=== PATIENT | female | born 1995 | race Caucasian/White ===

== ENCOUNTER → 2018-03-13 19:18 | Outpatient (REF) | payer MEDICAID, SELFPAY | LOC: LBN 19:18 | PROVIDERS: PCP Nurse Practitioner Family; Visit Provider Nurse Practitioner Family | DX: N76.0 Acute vaginitis (principal) | CPT/HCPCS: 87480; 87510; 87660 ==

== ENCOUNTER 2018-04-24 09:53 | Outpatient (CLI) | payer MEDICAID, SELFPAY ==
--- NOTE | 2018-04-24 10:00 | DI.US_ITS ---
SYMPTOM/DIAGNOSIS: CALCULUS OF KIDNEY, N20.0 RENAL ULTRASOUND: Routine examination. The left kidney measures 11.8 cm. long. The right kidney measures 11.5 cm. long. No renal masses, calculi or obstruction is seen. There is normal and symmetric blood flow to the kidneys. The prevoid urinary bladder volume is 80 cc's. The bladder wall appeared smooth. No intraluminal masses were present. Both ureteral jets were visualized. The post void urinary bladder volume was 13 cc's. IMPRESSION: Normal renal ultrasound.
== END 2018-04-24 10:13 ==
PROVIDERS: PCP Nurse Practitioner Family; Visit Provider Urology
DX: N20.0 Calculus of kidney (principal)
CPT/HCPCS: 76770

== ENCOUNTER 2018-05-22 19:53 | Emergency (ER) | payer MEDICAID, SELFPAY ==
[2018-05-22 19:59] VITALS: BP 120/77; PULSE 85; RESP 16; TEMP 36.5; O2SAT 100
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
[2018-05-22] MEDS: Ondansetron O.D.T. 4 MG TABEF PO (20:45)
== END 2018-05-22 20:49 | disposition home or self-care (01) ==
LOC: ER 20:49
PROVIDERS: Emergency Provider Emergency Medicine; PCP Nurse Practitioner Family
DX: S06.0X0A Concussion without loss of consciousness, initial encounter (principal); W50.0XXA Accidental hit or strike by another person, initial encounter
CPT/HCPCS: 99283

== ENCOUNTER 2018-05-27 01:14 | Outpatient (CLI) | payer MEDICAID, SELFPAY ==
--- NOTE | 2018-05-27 13:10 | DI.CT_ITS ---
SYMPTOMS/DIAGNOSIS: RECENT CLOSED HEAD INJURY, H/O TBI, DIPLOPIA, H53.2, S09.90XA CRANIAL CT: A noncontrast enhanced examination was performed according to the usual protocol. There is no evidence of an intra or extra-axial hemorrhage, mass or fluid collection. There is nothing to suggest a territorial infarct. The bell/ white matter differentiation is maintained. The ventricles are unremarkable. There is no evidence of a skull fracture. Note is made of hyperostosis frontalis. The sinuses and mastoid air cells are unremarkable. SUMMARY: No acute intracranial abnormality is demonstrated.
== END 2018-05-27 01:34 ==
PROVIDERS: PCP Nurse Practitioner Family; Visit Provider Nurse Practitioner Family
DX: H53.2 Diplopia (principal); S09.90XD Unspecified injury of head, subsequent encounter; Z87.820 Personal history of traumatic brain injury
CPT/HCPCS: 70450

== ENCOUNTER 2018-08-27 20:05 | Outpatient (REF) | payer MEDICAID, SELFPAY | END 2018-08-27 20:25 | LOC: LBN 20:05 | PROVIDERS: PCP Nurse Practitioner Family; Visit Provider Nurse Practitioner Family | DX: J02.9 Acute pharyngitis, unspecified (principal) | CPT/HCPCS: 87070 ==

== ENCOUNTER 2018-10-29 11:33 | Outpatient (REF) | payer MEDICAID, SELFPAY ==
[2018-10-30 13:47] LABS: Chlamydia Result Negative; GC Result Negative; Specimen Description CERVIX
== END 2018-10-29 11:53 ==
LOC: LBN 11:33
PROVIDERS: PCP Nurse Practitioner Family; Visit Provider Nurse Practitioner Women's Health
DX: Z11.3 Encounter for screening for infections with a predominantly sexual mode of transmission (principal)
CPT/HCPCS: 87491; 87591

== ENCOUNTER 2019-08-10 01:53 | Outpatient (CLI) | payer MEDICAID, SELFPAY ==
[2019-08-10 09:57] LABS: Hemoglobin A1C 5.5 % (3.8-5.6)
[2019-08-10 10:16] LABS: ALT 60 U/L (14-59); AST 28 U/L (15-37); Alkaline Phosphatase 91 U/L (46-116); Anion Gap 9.2 mmol/L (3-11); BUN 13 mg/dL (7-18); Bilirubin, Total 0.8 mg/dL (0.2-1.0); CO2 27.8 mmol/L (21.0-32.0); CREATININE 0.89 mg/dL (0.55-1.02); Calcium 9.4 mg/dL (8.5-10.1); Calculated LDL 118 mg/dL; Chloride 104 mmol/L (98-107); Cholesterol 179 mg/dL (<200); Glucose 105 mg/dL (74-106); HDL Cholesterol 49 mg/dL (40-60); Potassium 4.2 mmol/L (3.5-5.1); Sodium 141 mmol/L (136-145); TSH 1.87 uIU/mL (0.36-3.74); Total Protein 7.7 g/dL (6.4-8.2); Triglyceride 64 mg/dL (<150)
[2019-08-10 10:35] LABS: FREE T4 0.96 ng/dL (0.76-1.46)
== END 2019-08-10 02:13 ==
PROVIDERS: PCP Nurse Practitioner Family; Visit Provider Nurse Practitioner Family
DX: E78.5 Hyperlipidemia, unspecified (principal); E28.2 Polycystic ovarian syndrome
CPT/HCPCS: 36415; 80053; 80061; 83036; 84439; 84443

== ENCOUNTER 2020-03-15 01:00 | Outpatient (CLI) | payer MEDICAID, SELFPAY ==
--- NOTE | 2020-03-15 13:07 | DI.RAD_ITS ---
EXAM: XR FOOT LT COMPLETE CLINICAL HISTORY: stepped on nail; punture left foot, r/o fracture,S91.332A TECHNIQUE: COMPARISON: CR RIGHT FOOT COMPLETE from 05/22/2010 FINDINGS: Three views were obtained. No bony or soft tissue abnormality seen. No visible foreign body. IMPRESSION: RADIATION DOSE DELIVERED: Total DLP
== END 2020-03-15 01:20 ==
PROVIDERS: PCP Nurse Practitioner Family; Visit Provider Physician Assistant
DX: S91.332A Puncture wound without foreign body, left foot, initial encounter (principal)
CPT/HCPCS: 73630

== ENCOUNTER 2020-04-11 19:29 | Emergency (ER) | payer MEDICAID, SELFPAY ==
[2020-04-11] VITALS (11 sets, daily range): BP systolic 100–140; BP diastolic 49–109; PULSE 67–89; RESP 16–18; TEMP 36.5; O2SAT 97–99
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
[2020-04-11] MEDS: diphenhydrAMINE 50 MG/ML VIAL 25 MG IVP (20:27)
[2020-04-11] MEDS: Normal Saline Flush 10 ML SYR IVP (20:27)
[2020-04-11] MEDS: Ketorolac 30 MG/ML VIAL IVP (20:27)
[2020-04-11] MEDS: Prochlorperazine 10 MG/2 ML VIAL IVP (20:27)
[2020-04-11] MEDS: Lactated Ringers 1,000 ML 1000 ML IV (20:28)
[2020-04-11 20:45] LABS: Abs Immature Grans 0.14 10^3/uL (0.0-0.06); Absolute Lymphocyte Count 1.95 10^3/uL (1.2-3.4); Basophils % 0.3; HCT 47.5 % (36.0-46.0); HGB 15.9 g/dL (11.2-15.7); Immature Grans % 0.8; MCH 29.1 pg (27.0-33.0); MCHC 33.5 % (32.0-36.0); MCV 86.8 fL (80-95); MPV 9.8 fL (8.0-11.0); Monocytes % 3.5; Neutrophils % 84.4; Nucleated RBC 0 %; Platelet Count 484 10^3/uL (130-400); RBC 5.47 10^6/uL (3.93-5.22); RDW 12.5 % (11.7-14.6); RDW-SD 39.7 fL; WBC 17.76 10^3/uL (4.4-10.8)
[2020-04-11 20:53] LABS: Absolute Basophil Count 0.05 10^3/uL (0.0-0.2); Absolute Monocyte Count 0.62 10^3/uL (0.1-0.8); Absolute Neutrophil Count 14.99 10^3/uL (1.2-6.7)
[2020-04-11 21:17] LABS: ALT 66 U/L (14-59); AST 25 U/L (15-37); Albumin 3.7 g/dL (3.4-5.0); Alkaline Phosphatase 89 U/L (46-116); Anion Gap 8.6 mmol/L (3-11); BUN 15 mg/dL (7-18); Bilirubin, Total 0.4 mg/dL (0.2-1.0); CO2 27.4 mmol/L (21.0-32.0); CREATININE 0.88 mg/dL (0.55-1.02); Calcium 9.2 mg/dL (8.5-10.1); Chloride 104 mmol/L (98-107); Glucose 130 mg/dL (74-106); Potassium 3.7 mmol/L (3.5-5.1); Sodium 140 mmol/L (136-145); Total Protein 7.9 g/dL (6.4-8.2)
[2020-04-11 21:37] LABS: TSH (W/Ref FT4) 0.84 uIU/mL (0.36-3.74)
[2020-04-13 17:28] LABS: Lyme Ab w Rflx to Lyme Confirm Negative (Negative)
[2020-04-15 13:43] LABS: Anaplasma phagocytophilum Negative (Negative); B. miyamotoi PCR Negative (Negative); Babesia divergens/MO-1 Negative (Negative); Babesia duncani Negative (Negative); Babesia microti Negative (Negative); Ehrlichia chaffeensis Negative (Negative); Ehrlichia ewingii/canis Negative (Negative); Ehrlichia muris eauclairensis Negative (Negative)
== END 2020-04-11 21:50 | disposition home or self-care (01) ==
PROVIDERS: Emergency Provider Physician Assistant; PCP Nurse Practitioner Family
DX: G43.809 Other migraine, not intractable, without status migrainosus (principal); R11.2 Nausea with vomiting, unspecified
CPT/HCPCS: 36415; 80053; 81025; 87798; 96361; 96374; 96375; 99284; 83735; 84443; 85025; 86618; J0780; J1200; J1885

== ENCOUNTER 2020-06-02 09:44 | Emergency (ER) | payer MEDICAID, SELFPAY ==
[2020-06-02 09:45] VITALS: BP 116/68; PULSE 74; RESP 18; TEMP 37; O2SAT 98
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
[2020-06-02] MEDS: Ondansetron O.D.T. 4 MG TABEF PO (10:04)
== END 2020-06-02 10:14 | disposition home or self-care (01) ==
PROVIDERS: Emergency Provider Registered Nurse Emergency; PCP Nurse Practitioner Family
DX: S06.0X0A Concussion without loss of consciousness, initial encounter (principal); R11.0 Nausea; W50.1XXA Accidental kick by another person, initial encounter; Y99.0 Civilian activity done for income or pay
CPT/HCPCS: 99283

== ENCOUNTER 2020-11-16 21:56 | Outpatient (REF) | payer MEDICAID, SELFPAY ==
[2020-11-16 22:49] LABS: FREE T4 0.93 ng/dL (0.76-1.46); TSH 0.87 uIU/mL (0.36-3.74)
[2020-11-20 15:41] LABS: IgA 304 mg/dL (85-499); Interpretation (See Note); Tissue Transglutaminase IgA <1.2 U/mL (<4.0)
== END 2020-11-16 21:57 | disposition home or self-care (01) ==
LOC: LBN 21:56
PROVIDERS: PCP Nurse Practitioner Family; Visit Provider Nurse Practitioner Family
DX: R19.7 Diarrhea, unspecified (principal); E66.9 Obesity, unspecified
CPT/HCPCS: 82784; 83516; 84439; 84443

== ENCOUNTER 2020-11-20 02:29 | Outpatient (CLI) | payer MEDICAID, SELFPAY ==
[2020-11-20 10:11] LABS: Abs Immature Grans 0.04 10^3/uL (0.0-0.06); Absolute Basophil Count 0.09 10^3/uL (0.0-0.2); Absolute Lymphocyte Count 2.69 10^3/uL (1.2-3.4); Absolute Monocyte Count 0.79 10^3/uL (0.1-0.8); Basophils % 0.8; Eosinophils % 5.8; HCT 45.7 % (36.0-46.0); HGB 15.3 g/dL (11.2-15.7); Immature Grans % 0.4; Lymphocytes % 24.6; MCH 29.5 pg (27.0-33.0); MCHC 33.5 % (32.0-36.0); MCV 88.1 fL (80-95); MPV 9.3 fL (8.0-11.0); Monocytes % 7.2; Neutrophils % 61.2; Nucleated RBC 0 %; Platelet Count 405 10^3/uL (130-400); RBC 5.19 10^6/uL (3.93-5.22); RDW 12.5 % (11.7-14.6); RDW-SD 41.1 fL; WBC 10.95 10^3/uL (4.4-10.8)
[2020-11-20 10:12] LABS: Absolute Eosinophil Count 0.64 10^3/uL (0.0-0.7)
[2020-11-20 10:48] LABS: Hemoglobin A1C 5.3 % (<5.7)
== END 2020-11-20 02:30 | disposition home or self-care (01) ==
LOC: LBO 02:29
PROVIDERS: PCP Nurse Practitioner Family; Visit Provider Nurse Practitioner Family
DX: R53.83 Other fatigue (principal); E66.9 Obesity, unspecified; Z13.1 Encounter for screening for diabetes mellitus
CPT/HCPCS: 36415; 83036; 85025

== ENCOUNTER 2020-12-08 19:55 | Emergency (ER) | payer MEDICAID, SELFPAY ==
[2020-12-08 20:12] VITALS: BP 130/88; PULSE 120; RESP 18; TEMP 36.8; O2SAT 99
--- NOTE | 2020-12-08 20:34 | W.ED.GENAD ---
Discharge Plan Disposition Patient Disposition: HOME Condition: Stable Discharge Details Clinical Impression: Mesenteric adenitis, Abdominal pain Primary Care Provider: Suri Diaz ED Provider: Wen Shipman Home Meds and New Rx's Prescriptions: No Action omeprazole 20 mg capsule,delayed release(DR/EC) 20 mg PO DAILY Qty: 90 RF: 0 bupropion HCl 150 mg tablet sustained-release 12 hr 150 mg PO BID RF: 0 Botox 100 unit recon soln 200 unit IM .Q 3 months RF: 0 Mirena 20 mcg/24 hours (5 yrs) 52 mg intrauterine device 1 device IY ONCE RF: 0 triamcinolone acetonide 0.5 % cream 1 applic topical DAILY PRN (Reason: dermatitis) Qty: 15 RF: 4 prochlorperazine maleate 10 mg tablet 10 mg PO Q8H PRN (Reason: nausea and vomiting) Qty: 90 RF: 0 dextroamphetamine-amphetamine [Adderall] 10 mg tablet 10 mg PO TID MDD 30mg Qty: 90 RF: 0 Discharge Instructions Instructions: Abdominal Pain (ED) Additional Instructions: Take medications as directed. Obtain stool sample and bring them to the lab at your convenience. The CT done tonight shows some mild reactive lymph nodes and some mesenteric stranding which is the covering covering your intestines. Follow up with primary care provider in 3-5 days. Return to ED sooner if any worsening or concerns. Increase oral fluids. You are placed on care management with to help expedite follow-up with PCP for reevaluation. Please return to the ER for any worsening pain, fever, vomiting, blood in your stool or any concerns Referrals: Suri Diaz NP [Primary Care Provider] - Discharge Data Discharge Date/Time-TO BE ENTERED AT DEPARTURE: 12/09/20 00:07 Medical Decision Making 25-year-old female presents the ER with chief complaint of suprapubic pressure and cramping with pain into her bilateral lower back. This began 3 weeks ago and has gotten worse. She reports nausea no vomiting no diarrhea. She last had a menstrual period in July she does have an IUD in place. She has a past medical history of GERD, migraines headache, ADHD, PCOS, hyperlipidemia, obesity. She denies any vaginal discharge, itching or bleeding. At this time labs show white blood cell count of 13.60, RBCs 5.28 platelet count 409, absolute neutrophil 7.51, sodium 140, potassium 3.8 BUN 12 creatinine 0.8 urinalysis is negative for nitrites no leukocyte negative for ketones no indication for culture at this time. Differential diagnosis includes urinalysis which is not evident, UTI, pyelonephritis, musculoskeletal strain, kidney stone, however there is no blood in the urine, STI patient denies any vaginal discharge itching or bleeding. 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 I did discuss this with patient and follow-up instruction. Patient discharged home with strict return instructions. This text was generated using [employer] system, please disregard any oddities of phrase or misspellings. HPI General Mode of arrival: ambulatory. Date/Time Provider Initiated Documentation: 12/08/20 20:31. Limitations to Documentation: no limitations. Information obtained by: patient. HPI Narrative: 25-year-old female presents the ER with chief complaint of suprapubic pressure and cramping with pain into her bilateral lower back. This began 3 weeks ago and has gotten worse. She reports nausea no vomiting no diarrhea. She last had a menstrual period in July she does have an IUD in place. She has a past medical history of GERD, migraines headache, ADHD, PCOS, hyperlipidemia, obesity. She denies any vaginal discharge, itching or bleeding. Related Data Home Medications Medication Instructions Recorded Confirmed levonorgestrel 20 mcg/24 hours (6 1 device IY ONCE 01/31/19 12/08/20 yrs) 52 mg intrauterine device onabotulinumtoxinA 100 unit 200 unit IM .Q 3 months ea 04/18/20 12/08/20 solution for injection triamcinolone acetonide 0.5 % 1 applic TOPICAL DAILY PRN #15 g 05/17/20 12/08/20 topical cream prochlorperazine maleate 10 mg 10 mg PO Q8H PRN #90 tab 06/08/20 12/08/20 tablet dextroamphetamine-amphetamine 10 10 mg PO TID #90 tab MDD 30mg 11/08/20 12/08/20 mg tablet omeprazole 20 mg capsule,delayed 20 mg PO DAILY #90 cap 11/16/20 12/08/20 release bupropion HCl 150 mg tablet,12 hr 150 mg PO BID tab 11/20/20 12/08/20 sustained-release Previous Rx's Medication Instructions Recorded triamcinolone acetonide 0.5 % 1 applic TOPICAL DAILY PRN #15 g 05/17/20 topical cream prochlorperazine maleate 10 mg 10 mg PO Q8H PRN #90 tab 06/08/20 tablet dextroamphetamine-amphetamine 10 10 mg PO TID #90 tab MDD 30mg 11/08/20 mg tablet omeprazole 20 mg capsule,delayed 20 mg PO DAILY #90 cap 11/16/20 release Allergies Allergy/AdvReac Type Severity Reaction Status Date / Time sulfamethoxazole AdvReac Intermediate Nausea Verified 12/08/20 20:28 [From Bactrim] trimethoprim [From Bactrim] AdvReac Intermediate Nausea Verified 12/08/20 20:28 General Stated Complaint: Abd Prob TIARA: 3 Review of Systems Narrative: constitutional: Negative for weight loss, alert and oriented, well groomed, normal body habitus, appears uncomfortable HEENT: Denies trauma, headaches, blurry vision, nasal discharge, sore throat, trouble swallowing. Chest: Denies chest pain, palpitations, irregular rhythm, hypertension. Respiratory: Denies Shortness of breath, cough, hemoptysis. GI: Denies , vomiting, diarrhea, constipation. Positive suprapubic abdominal pain, nausea. : Denies rectal bleeding. Positive dysuria, bilateral lower back pain. Neuro: Denies dizziness, blurry vision, weakness, syncope, headache or facial numbness. Hematologic: Denies easy bruising, intolerance to heat or cold, hair loss. REPLACED BY [facility] Medical History ADHD (attention deficit hyperactivity disorder) Atopic dermatitis Concussion Multiple concussions in childhood Depressive disorder Generalized anxiety disorder GERD (gastroesophageal reflux disease) Hyperlipidemia IUD surveillance Mirena IUD inserted 10/29/18 Migraine headache without aura Followed by [facility] [place] [facility], Botox q12wks Obesity PCOS (polycystic ovarian syndrome) Surgical History H/O valvuloplasty (~1995) Cardiac valvuloplasty History of removal of ureteral stent (12/02/14) Right S/P appendectomy S/P cystoscopy with ureteral stent placement (11/18/14) Right Family History Mother PCOS (polycystic ovarian syndrome) Hyperlipidemia Breast cancer Type 2 diabetes mellitus Brain cancer Father Depression Hyperlipidemia Prostate cancer Brother Chronic headaches Maternal Grandfather No problems noted. Maternal Grandmother , at 63 Heart disease Type 2 diabetes mellitus Liver cancer Breast cancer Paternal Grandfather Type 2 diabetes mellitus Hyperlipidemia Paternal Grandmother No problems noted. Social History Smoking/Tobacco Use Status: Never Smoking risk assessment performed?: Yes Alcohol Intake: current Alcohol Intake frequency: holidays/special occasions only Alcohol type: beer, wine and hard liquor Drug use: Never Substance use type: does not use Caregiver/Support person: No Household members: family and children Housing: house Number of Children: 1 Communication Needs: None Pets and animals: Yes Pets and animals: dog(s) Sexually active: Yes Do you think of yourself as: straight/heterosexual Current gender identity: female What is your relationship status?: refused to answer How often do you talk on the phone with friends or family?: three or more times per week How often do you get together with friends or relatives?: once per week How often do you attend sabianist or faith services?: decline to answer Do you belong to any clubs or organized social groups?: no Panel score (0-1 are the most socially isolated patients): 1 What type of physical activity do you participate in: yoga Duration: < 15 minutes/day Frequency: 3-4 times per week Claudia/Amish: None Special claudia needs: No Seatbelt use: always Helmet use: No Drive intox or ride w/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 Appears stated age. Obese body habitus. Head: Normocephalic, no trauma. Eyes: Pupils PERRLA, Red reflex noted, EOM's intact. Eyelids symmetrical without lesions, discharge, or swelling. ENT: Bilateral TM's WNL, External ear normal to inspection, no mastoid TTP, swelling, or erythema, Nasal turbinates WNL, no nasal discharge. Normal dentition, Posterior pharynx WNL, no exudate. Chest: RRR, Normal S1, S2, distal pulses intact. Resp: Lungs clear to auscultation bilaterally, no wheezes, rales, or rhonchi. Abdomen: Soft, nondistended tender to palpation suprapubically, bilateral CVA tenderness with palpation. Musculoskeletal: Normal gait, 5/5 strength to all four extremities. Skin: No suspicious rashes or lesions. Capillary refill less than 2 sec. Neurologic: Cranial nerves II-XII intact. Alert and oriented x 3. DTR's intact. Hematologic/Lymphatic: No ecchymosis, no lymphadenopathy. Course Vital Signs Vital signs: Vital Signs Temperature 36.8 C 12/08/20 20:12 Pulse 120 H 12/08/20 20:12 Respiratory Rate 18 12/08/20 20:12 Blood Pressure 130/88 12/08/20 20:12 Pulse Oximetry 99 12/08/20 20:12 Temperature 36.8 C 12/08/20 20:12 Temperature Source Temporal Artery Scan 12/08/20 20:12 Pulse 120 H 12/08/20 20:12 Respiratory Rate 18 12/08/20 20:12 Respiratory Effort 12/08/20 20:22 Blood Pressure 130/88 12/08/20 20:12 Blood Pressure Position Sitting 12/08/20 20:12 Pulse Oximetry 99 12/08/20 20:12 Oxygen Delivery Method Room Air 12/08/20 20:12 Oxygen Flow Rate 0 12/08/20 20:12 Pain Level 8 12/08/20 20:22
[2020-12-08 20:56] LABS: Bilirubin Negative (Negative); Blood Negative (Negative); Clarity Clear (Clear); Glucose Negative (Negative); Ketones Negative (Negative); Leukocyte Esterase Negative (Negative); Nitrite Negative (Negative); Specific Gravity >= 1.030 (1.005-1.025); Urobilinogen 0.2 EU/dL (Up TO 0.2); pH 6.5 (5-8)
[2020-12-08] MEDS: Normal Saline 1,000 ML 1000 ML IV (21:43)
[2020-12-08] MEDS: Ondansetron 4 MG/2 ML VIAL IVP (21:43)
[2020-12-08] MEDS: Ketorolac 15 MG/ML VIAL IVP (21:55)
[2020-12-08 21:57] LABS: Abs Immature Grans 0.05 10^3/uL (0.0-0.06); Absolute Basophil Count 0.11 10^3/uL (0.0-0.2); Absolute Eosinophil Count 0.57 10^3/uL (0.0-0.7); Absolute Lymphocyte Count 4.05 10^3/uL (1.2-3.4); Absolute Monocyte Count 1.31 10^3/uL (0.1-0.8); Absolute Neutrophil Count 7.51 10^3/uL (1.2-6.7); Basophils % 0.8; Eosinophils % 4.2; HCT 45.8 % (36.0-46.0); HGB 15.5 g/dL (11.2-15.7); Immature Grans % 0.4; Lymphocytes % 29.8; MCH 29.4 pg (27.0-33.0); MCHC 33.8 % (32.0-36.0); MCV 86.7 fL (80-95); MPV 9.6 fL (8.0-11.0); Monocytes % 9.6; Neutrophils % 55.2; Nucleated RBC 0 %; Platelet Count 409 10^3/uL (130-400); RBC 5.28 10^6/uL (3.93-5.22); RDW 12.5 % (11.7-14.6); RDW-SD 39.4 fL
[2020-12-08 22:05] LABS: Anion Gap 8.6 mmol/L (3-11); BUN 12 mg/dL (7-18); CO2 26.4 mmol/L (21.0-32.0); CREATININE 0.8 mg/dL (0.55-1.02); Calcium 9.2 mg/dL (8.5-10.1); Chloride 105 mmol/L (98-107); Glucose 93 mg/dL (74-106); Potassium 3.8 mmol/L (3.5-5.1); Sodium 140 mmol/L (136-145)
--- NOTE | 2020-12-08 22:23 | DI.CT_ITS ---
Exam(s) CT RENAL COLIC WO EXAM: CT RENAL COLIC WO INDICATION: R/O kidney stone vs pyelonephritis. COMPARISON: CT ABD PELVIS WITH CONTRAST from 07/04/2015 TECHNIQUE: FINDINGS: CT examination of the abdomen and pelvis was performed without contrast administration. Images obtained through the lung bases are unremarkable. There may be mild hepatic steatosis. No focal hepatic lesion. Gallbladder and bile ducts are CT normal. Pancreas appears normal. Spleen is unremarkable in appearance. Adrenals appear normal. The kidneys are unremarkable with no evidence of hydronephrosis, nephrolithiasis, or renal mass.. Ur inary bladder unremarkable. Abdominal aorta is of normal diameter and no major vascular abnormality is seen. No abdominal wall hernia. No abdominal or pelvic adenopathy. Question slight prominence of mesenteri c lymph nodes, nonspecific. THERAPEUTIC CASE MANAGER structures appear intact with an IUD in place in the uterine midline. Appendix appears to have been surgically removed. No evidence of diverticulitis or bowel obstruction . IMPRESSION: Negative CT examination of the abdomen and pelvis. RADIATION DOSE DELIVERED: 1,322.83mGy.cm Total DLP 1,322.83mGy.cm Total DLP RADIATION OPTIMIZATION: All CT scans at this facility use at least one of these dose optimization te chniques: automated exposure control; mA and/or kV adjustment per patient size (includes targeted exa ms where dose is matched to clinical indication); or iterative reconstruction.
--- NOTE | 2020-12-08 23:17 | DI.VRAD_ITS ---
PROCEDURE INFORMATION: Exam: CT Abdomen And Pelvis Without Contrast Exam date and time: 12/08/2020 8:56 PM Age: 25 years old Clinical indication: Abdominal pain; Flank; Right; Patient HX: R/O kidney stones vs pyelonephritis TECHNIQUE: Imaging protocol: Computed tomography of the abdomen and pelvis without contrast. Radiation optimization: All CT scans at this facility use at least one of these dose optimization techniques: automated exposure control; mA and/or kV adjustment per patient size (includes targeted exams where dose is matched to clinical indication); or iterative reconstruction. COMPARISON: CT ABD PELVIS WITH CONTRAST 07/04/2015 5:18 PM FINDINGS: Lungs: unremarkable lung bases. Heart: Visualized heart is normal size. Liver: Hepatic steatosis. Hepatomegaly. Otherwise unremarkable liver. Gallbladder and bile ducts: unremarkable gallbladder. no significant biliary ductal dilation. Pancreas: Unremarkable pancreas. Spleen: Unremarkable spleen. Adrenal glands: Unremarkable bilateral adrenal glands. Kidneys and ureters: Unremarkable bilateral kidneys. no hydronephrosis. Unremarkable bilateral ureters. Stomach and bowel: Nonobstructive appearance of the bowel. Appendix: Changes related to prior appendectomy. Intraperitoneal space: No free air. No significant free fluid. Vasculature: normal caliber aorta. Lymph nodes: There is mild central mesenteric stranding with multiple prominent associated and suspected reactive nodes. Other scattered prominent nodes also present and may also be reactive in nature. Urinary bladder: Bladder poorly distended and poorly evaluated. Grossly unremarkable. Reproductive: IUD in place and appears appropriately positioned. Uterus otherwise unremarkable for age. unremarkable adnexa for age. Bones/joints: No acute fracture or dislocation. Soft tissues: Unremarkable superficial soft tissues. IMPRESSION: 1. Findings suggestive of mesenteric panniculitis. 2. Hepatomegaly and hepatic steatosis. Correlate with LFTs. 3. There is no evidence of renal or urinary tract calculi. No evidence of pyelonephritis. Dictated and Authenticated by: Papa Escamilla MD. Ordering:SALO Carver MD
[2020-12-09 00:17] VITALS: BP 130/88; RESP 18; TEMP 36.8; O2SAT 99
== END 2020-12-09 00:07 | disposition home or self-care (01) ==
PROVIDERS: Emergency Provider Registered Nurse Emergency; PCP Nurse Practitioner Family
DX: I88.0 Nonspecific mesenteric lymphadenitis (principal); R10.30 Lower abdominal pain, unspecified
CPT/HCPCS: 80048; 81025; 96361; 96374; 96375; 99284; 74176; 81003; 85025; J1885; J2405

== ENCOUNTER 2020-12-14 18:47 | Outpatient (REF) | payer MEDICAID, SELFPAY ==
--- NOTE | 2020-12-14 16:00 | PAPFT_PTH ---
PATIENT: Norma Julian LOC: [facility] U#:[id number] AGE/SX: 25/F ROOM: RE12/14/[address]: LENCHO Velásquez : 1995 BED: DIS: 12/14/2020 SPEC #: [id number] RECD: 12/15/20 12:59 STATUS: JW KUHN #: [id number] RACHEL: 12/14/20 16:[address]: Suri Diaz DEPT: [facility] Cytology RECD BY: Manda Herrera Tissues: 1 - CX/ENDOCX FOR PAP SMEARS Procedures: PAP THIN PREP/[facility] Screening Comments: [id number] (CHLAMYDIA/GC)
[2020-12-18 15:18] LABS: Chlamydia Result Negative (Negative); GC Result Negative (Negative)
== END 2020-12-14 18:48 | disposition home or self-care (01) ==
LOC: LBN 18:47
PROVIDERS: PCP Nurse Practitioner Family; Visit Provider Nurse Practitioner Family
DX: Z11.3 Encounter for screening for infections with a predominantly sexual mode of transmission (principal); Z12.4 Encounter for screening for malignant neoplasm of cervix
CPT/HCPCS: 87491; 87591; 88142

== ENCOUNTER 2021-02-12 16:04 | Outpatient (CLI) | payer MEDICAID, SELFPAY ==
[2021-02-12 15:06] LABS: Abs Immature Grans 0.03 10^3/uL (0.0-0.06); Absolute Eosinophil Count 0.43 10^3/uL (0.0-0.7); Absolute Lymphocyte Count 2.71 10^3/uL (1.2-3.4); Basophils % 0.9; Eosinophils % 3.7; HCT 44.4 % (36.0-46.0); HGB 15.1 g/dL (11.2-15.7); Immature Grans % 0.3; Lymphocytes % 23.1; MCH 29.4 pg (27.0-33.0); MCV 86.4 fL (80-95); MPV 9.4 fL (8.0-11.0); Monocytes % 6.8; Neutrophils % 65.2; Nucleated RBC 0 %; Platelet Count 422 10^3/uL (130-400); RBC 5.14 10^6/uL (3.93-5.22); RDW 12.1 % (11.7-14.6); RDW-SD 38.5 fL; WBC 11.73 10^3/uL (4.4-10.8)
[2021-02-12 15:12] LABS: Absolute Basophil Count 0.11 10^3/uL (0.0-0.2); Absolute Neutrophil Count 7.65 10^3/uL (1.2-6.7)
[2021-02-12 15:25] LABS: HCG Quant, Pregnancy < 1 mIU/mL (1-3)
== END 2021-02-12 16:05 | disposition home or self-care (01) ==
LOC: LBO 16:04
PROVIDERS: PCP Nurse Practitioner Family; Visit Provider Nurse Practitioner Family
DX: N93.9 Abnormal uterine and vaginal bleeding, unspecified (principal); D75.1 Secondary polycythemia
CPT/HCPCS: 36415; 84702; 85025

== ENCOUNTER 2021-03-28 02:42 | Outpatient (CLI) | payer MEDICAID, SELFPAY ==
--- NOTE | 2021-03-28 08:00 | DI.US_ITS ---
Exam(s) US ABDOMEN EXAM: US ABDOMEN CLINICAL HISTORY: intermittent LUQ PAIN, NAUSEA, VOMITING,R10.12,R11.2 TECHNIQUE: Ultrasound abdomen performed using standard protocol. COMPARISON: CT CT RENAL COLIC WO from 12/08/[address] RENAL COLIC WO from 12/08/2020 FINDINGS: LIVER: Mildly enlarged at 16 cm. Diffusely increased liver echogenicity consistent with fatty infilt ration. No focal liver lesions are seen.. GALLBLADDER: No evidence of cholelithiasis. No evidence of wall thickening. No pericholecystic fluid identified. CRENSHAW'S SIGN: Negative. BILIARY SYSTEM: No intrahepatic or extrahepatic biliary ductal dilation. KIDNEYS: Kidneys are symmetric in size. No evidence of renal calculi. No evidence of hydronephrosis. No renal mass or cyst identified. PANCREAS: Normal where visualized. SPLEEN: Not enlarged. ABDOMINAL AORTA AND IVC: Visualized portions normal caliber. ASCITES: None seen. IMPRESSION: Hepatic steatosis, otherwise negative. DATA REPOSITORY:
== END 2021-03-28 03:02 ==
PROVIDERS: PCP Nurse Practitioner Family; Visit Provider Obstetrics & Gynecology Gynecology
DX: R10.12 Left upper quadrant pain (principal); R11.2 Nausea with vomiting, unspecified; K76.0 Fatty (change of) liver, not elsewhere classified
CPT/HCPCS: 76700

== ENCOUNTER 2021-03-28 21:05 | Outpatient (CLI) | payer MEDICAID, SELFPAY ==
[2021-03-28 13:42] LABS: ESR 7 mm/hr (0-20)
[2021-03-28 15:11] LABS: Iron 69 ug/dL (50-170); Total Iron Binding Capacity 359 ug/dL (250-450)
[2021-03-28 15:24] LABS: Ferritin 122 ng/mL (8-252)
[2021-03-28 15:32] LABS: C-Reactive Protein 0.29 mg/dL (0.0-0.3)
== END 2021-03-28 21:06 | disposition home or self-care (01) ==
LOC: LBO 21:07
PROVIDERS: PCP Nurse Practitioner Family; Visit Provider Nurse Practitioner Family
DX: D47.3 Essential (hemorrhagic) thrombocythemia (principal)
CPT/HCPCS: 36415; 85652; 82728; 83540; 83550; 86140

== ENCOUNTER 2021-07-22 17:42 | Emergency (ER) | payer MEDICAID, SELFPAY ==
[2021-07-22] VITALS (18 sets, daily range): BP systolic 102–139; BP diastolic 62–98; PULSE 82–116; RESP 14–39; TEMP 36.4–36.7; O2SAT 98–100
--- NOTE | 2021-07-22 17:45 | RT.EKG_ITS ---
APPROVED REPORT Exam: Resting ECG Reason for Exam: chest pain Patient Location: E HR:98 bpm ECG Measurements Heart Rate 98 AXIS [place] 139 P 33 QRSd 88 QRS 39 QT 335 T 17 QTc 428 Conclusion Sinus rhythm...normal P axis, V-rate 60- 99. Sinus. No STEMI. I have reviewed and interpreted ECG and agree with software generated interpretation.
--- OUTSIDE RECORDS SUMMARY | 2021-07-22 17:49 | XMS_ITS ---
:1995 Author Organization Department [facility] Address [address] [place] [id number] Selected Encounter This section includes the information on record at [place] for the Encounter. Date/Time Encounter Type Encounter Description Reason Provider Source Apr 26, 2021 08:04 Outpatient Encounter ADMIN PAT ACTIVTIES AM (MASNONCT) IHE Encounter Template Text not used by [facility] Encounter Notes: All associated encounter notes This section contains the clinical notes associated to the Encounter. Date/Time Encounter Note(s) Provider Source Apr 26, 2021 08:04 AM CAREGIVER CERTIFICATE: AIDAN BISHOP [facility] LOCAL TITLE: CSP DENIAL NOTE [facility] STANDARD TITLE: CAREGIVER CERTIFICATE DATE OF NOTE: APR 26, 2021@08:04 ENTRY DATE: APR 26, 2021@08:04:33 AUTHOR: AIDAN BISHOP EXP COSIGNER: URGENCY: STATUS: COMPLETED Caregiver Support Program Denial Note Denial date: 04/23/2021 Denied from the Program of Comprehensive Assista nce for Family Caregivers. The person being denied is the . The reason for denial is the or sales service manager does not require personal care services for a minimum of 6 contin uous months based on an inability to perform an ADL and/or a need for ghosh pervision, protection or instruction. Date of verbal notification of determination: 04/26/2021 Date determination letter was mailed: 04/26/2021 The following information was reviewed and/or pr ovided: Appeals /maxine/ MICHELLE BISHOP BRICK LOADER Signed: 04/26/2021 08:05
--- OUTSIDE RECORDS SUMMARY | 2021-07-22 17:49 | XMS_ITS | Encounter Summary ---
:1995 Author Organization [facility] Address [address] [place] [address] Selected Encounter This section includes the information on record at [place] for the Encounter. Date/Time Encounter Type Encounter Description Reason Provider Source Apr 27, 2021 06:39 Outpatient Encounter ADMIN PAT ACTIVTIES AM (MASNONCT) IHE Encounter Template Text not used by [facility] Encounter Notes: All associated encounter notes This section contains the clinical notes associated to the Encounter. Date/Time Encounter Note(s) Provider Source Apr 27, 2021 06:39 CAREGIVER CERTIFICATE: BRITNEY JOHNSON LOCAL TITLE: CSP ADMINISTRATIVE NOTE [facility] STANDARD TITLE: CAREGIVER CERTIFICATE DATE OF NOTE: APR 27, 2021@06:39 ENTRY DATE: APR 27, 2021@06:39:12 AUTHOR: BRITNEY JOHNSON EXP COSIGNER: URGENCY: STATUS: COMPLETED PCA Decision Letter, [facility] Clinical [facility] FAQ, [facility] Form [id number], and [facility] Notice of Privacy Practices was mailed jean-pierre Eid by [facility] Certified Mail. A copy of the letter is attached to this note. [facility] Certified Mail Tracking # [id number] /maxine/ BRITNEY JOHNSON DIGITAL ASSET MANAGER Signed: 04/27/2021 06:39 Receipt Acknowledged By: * AWAITING SIGNATURE * AIDAN BISHOP
--- OUTSIDE RECORDS SUMMARY | 2021-07-22 17:49 | XMS_ITS ---
:1995 Author Organization Department [facility] Address [address] [place] [id number] Selected Encounter This section includes the information on record at [facility] for the Encounter. Date/Time Encounter Type Encounter Description Reason Provider Source Apr 03, 2021 09:20 Outpatient Encounter ADMIN PAT ACTIVTIES AM (MASNONCT) IHE Encounter Template Text not used by VA Encounter Notes: All associated encounter notes This section contains the clinical notes associated to the Encounter. Date/Time Encounter Note(s) Provider Source Apr 03, 2021 09:20 AM CAREGIVER CERTIFICATE: BRITNEY JOHNSON ANUJ JIANG [facility] LOCAL TITLE: CSP ADMINISTRATIVE NOTE [facility] STANDARD TITLE: CAREGIVER CERTIFICATE DATE OF NOTE: APR 03, 2021@09:20 ENTRY DATE: APR 03, 2021@09:20:22 AUTHOR: BRITNEY JOHNSON EXP COSIGNER: URGENCY: STATUS: COMPLETED [facility] Welcome letter and a copy of the V A Notice of Privacy Practices was sent to Norma Eid at the mailing address on file. A copy of the [facility] Welcome letter is attached to this note. /maxine/ BRITNEY JOHNSON PLASTER MACHINE OPERATOR Signed: 04/03/2021 09:20 Receipt Acknowledged By: 04/03/2021 09:29 /maxine/ MICHELLE BISHOP [facility]
--- OUTSIDE RECORDS SUMMARY | 2021-07-22 17:49 | XMS_ITS | Encounter Summary ---
:1995 Author Organization [facility] Address [address] [place] [id number] Selected Encounter This section includes the information on record at [facility] for the Encounter. Date/Time Encounter Type Encounter Reason Provider Source Description Apr 06, 2021 HC PRO PHONE TELEPHONE/ANCILL ICD-10-CM Z02.9 DICKSON BISHOP 01:49 PM CALL 5-10 MIN RODRIGO Encounter for JOE P administrative examinations, unspecified with Provider Comments: Encounter for Administrative Examinations, unspecified IHE Encounter Template Text not used by [facility] Assessments - Encounter Diagnoses This section includes the primary and secondary diagnoses documented forthe Encounter. Date/Time Primary/Secondary Diagnosis Name Provider Source Diagnosis Apr 06, 2021 PRIMARY Encounter for OFELIADomenicJoyaJANIE JIANG 01:49 PM administrative P JCT [facility] examinations, unspecified Surgical Procedures: All associated to the encounter This section includes all Surgical Procedures and Surgical Procedure Notes associated to the Encounter.Surgical Procedures This section includes all Surgical Procedures associated to the Encounter.Surgical Procedure Date/Time Procedure Procedure Type Procedure Provider Source Qualifiers Apr 06, 2021 HC PRO PHONE HC PRO PHONE DICKSON BISHOP 01:49 PM CALL 5-10 MIN CALL 5-10 MIN JOE P JCT [facility] Surgical Notes There are no notes associated with this procedure. Encounter Notes: All associated encounter notes This section contains the clinical notes associated to the Encounter. Date/Time Encounter Note(s) Provider Source Apr 06, 2021 01:49 PM CAREGIVER CERTIFICATE: AIDAN BISHOP [facility] LOCAL TITLE: CSP [facility] CAREGIVER ASSESSMENT [facility] STANDARD TITLE: CAREGIVER CERTIFICATE DATE OF NOTE: APR 06, 2021@13:49 ENTRY DATE: APR 06, 2021@13:49:53 AUTHOR: AIDAN BISHOP EXP COSIGNER: URGENCY: STATUS: COMPLETED DEMOGRAPHIC INFORMATION Caregiver's Name: SENTHIL EID Caregiver's Date of : Aug TYPE OF CAREGIVER: PRIMAR Y Method of assessment: Telephone 's Name: REBEKAH EID does not live with the Caregiver. 's Address: [address] [place] [id number] [address] to support the Vete ran at home? CG lives next to the Trade's home does not have a legal guardian. Trade does not have a fiduciary. Caregiver's Relationship to the : Caregiver is Trade's daughter. Caregiver's Insurance Status: Medicaid Comment: [facility] Caregiver is not a Trade. Caregiver denies current Service. Comment: n/a CAREGIVER RESPONSIBILITIES Employment - details: n/a School: Full-time Comment: full-time student Caregiver for Others: Takes care of the Trade's daughter who lives with CG. Volunteer Work: No CAREGIVER HISTORY Caregiver reports past paid caregiving experienc e. 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 Caregiver reports past unpaid caregiving experie nce. Details: Took care of mother before she passed . Caregiver reports receiving/attending caregiver training/education. Details: Respite care educational course. Length of time Caregiver reports caring for the : Less than 1 year Comment: Has been taking care of joe nevarez September 2020 How does the Caregiver report spending a typical day? Yara goes to school from [id number], house raghu porras, errands, picks up sister from school, takes Trade to appts as needed. Is home Friday-Friday and assists as needed. In what ways does the caregiver role affect the Caregiver's everyday life? Is constantly worried to make myke ethe Trade needs are being met and that he is feeling emotionally attached to his family. Per self-report, does the Caregiver use any self -care strategies? Yes - details: Receives counseling once a week, does not forbes ve a lot of time to other things. Per self-report, does anyone regularly assist th jaki Caregiver in providing care to the Trade? Yes - the following assists: CG's brother Walt assist with bathing and a s needed otherwise when CG is not available. The Caregiver denies use or receipt of any suppo rtive services or programs. Caregiver reports needing the following addition al knowledge and/or support: None reported CAREGIVER ASSESSMENT Does the Caregiver report any current or past ph ysical or medical conditions? Yes - details: Had a TBI 14 yrs. old. Does the Caregiver report any current or past me ntal health conditions? No Does the Caregiver report any current or past dr ug or alcohol use? No Does the Caregiver report or are there any curre nt or past concerns regarding domestic violence or safety? No Comment: no Does the Caregiver report any current or past le gal issues? No Comment: no If there is an intimate relationship between Loret bradly and Caregiver, does the Caregiver express any intimacy issues or concern s? Not Applicable Comment: CG is 's daughter Caregiver strengths and coping skills: CG describes herself as caring, understanding, very ambitious and loves to help when ever needed. Caregiver challenges and stressors: MITUL is going to school full-time, grieving over the passing of her mother, worries about her father's depression. Interventions/Plan (referrals, resources, educat ion, etc.): Discussed next steps of the [facility] applic ation process, no further questions at this time. Clinical Summary: Daughter of Izabela is applying as the primary c aregiver in the [facility]. The Trade's spouse who was his CG recently. CG's main concern of the Trade is his mobility issues with his left wellington e being numb most the day reported by and his depression. CG continues to discuss mental health treatment with the in hopes that he will find something that will accommodate his needs and help him to feel aida r and assist him through the grieving of spouse. CG describes herself as caring, understanding, v christian ambitious and loves to help when ever needed. Take s care of the Trade's daughter who lives with CG. MITUL is also going to school f ull-time and has her brother assist with her father when she is away. /maxine/ MICHELLE BISHOP RODEO CLOWN Signed: 04/06/2021 17:10
--- NOTE | 2021-07-22 18:00 | DI.RAD_ITS ---
Exam(s) XR PORTABLE CHEST AP EXAM: XR PORTABLE CHEST AP CLINICAL HISTORY: Chest Pain, PUI TECHNIQUE: 2D digital imaging was performed. COMPARISON: CR RIGHT SHOULDER COMPLETE from 10/28/2016 FINDINGS: LUNGS: Clear. No pleural abnormality seen. HEART: Normal. MEDIASTINUM: Normal. BONES: Unremarkable. IMPRESSION: No acute pulmonary findings. DATA REPOSITORY: RADIATION DOSE DELIVERED:
--- NOTE | 2021-07-22 18:29 | ED.GENADUL_ITS ---
Discharge Plan Disposition Patient Disposition: HOME Condition: Stable Discharge Details Clinical Impression: Viral upper respiratory illness Primary Care Provider: Suri Diaz ED Provider: Wen Shipman Home Meds and New Rx's Prescriptions: Continued bupropion HCl 300 mg tablet extended release 24 hr 300 mg PO DAILY Qty: 90 RF: 4 buspirone 7.5 mg tablet 7.5 mg PO BID Qty: 180 RF: 0 hydroxyzine HCl 50 mg tablet 50 mg PO Q6H PRN (Reason: itching) Qty: 90 RF: 0 dextroamphetamine-amphetamine [Adderall] 10 mg tablet 10 mg PO TID MDD 30mg Qty: 90 RF: 0 Botox 100 unit recon soln 200 unit IM .Q 3 months RF: 0 triamcinolone acetonide 0.5 % cream 1 applic topical DAILY PRN (Reason: dermatitis) Qty: 15 RF: 4 prednisone 20 mg tablet See Rx Instructions PO DAILY Qty: 24 RF: 0 levonorgestrel [Plan B One-Step] 1.5 mg tablet 1.5 mg PO ONCE Qty: 1 RF: 0 Discharge Instructions Instructions: Upper Respiratory Infection (ED), Anxiety (ED) Additional Instructions: The work-up completed today is largely within normal limits. No abnormality on the chest x-ray, Covid is negative. Use the albuterol inhaler 1 or 2 puffs every 4-6 hours as needed for shortness of breath and/or wheezing. This may be also a symptom of anxiety and/or grief reaction. Follow up with primary care provider in 3-5 days. Return to ED sooner if any worsening or concerns. Increase oral fluids. Please take Tylenol or Ibuprofen with food every 4-6 hours as needed for pain and swelling. Referrals: Suri Diaz, PIO [Primary Care Provider] - 5 days Medical Decision Making 25-year-old female presents to the ER with chief complaint of chest pain, heaviness and URI type symptoms got worse over the last few weeks. Patient reports that she feels like she has croup. She has no wheezing on auscultation, she has a dry nonproductive cough. She had a negative Covid test 5 days ago. She has a past medical history of depression, anxiety disorder, ADHD, hyperlipidemia, GERD, migraines and obesity. She was recently prescribed anti-anxiety medication including hydroxyzine and Ativan. Cardiac work-up ordered including EKG, serial troponins, D-dimer and basic labs. Portable chest x-ray and Covid test ordered. Patient is tachycardic on initial exam from 104 to 118. Differential diagnosis includes but not limited to bronchitis, anxiety, CAD, PE Imaging protocol: XR of the chest. Views: 1 view. COMPARISON: CT RENAL COLIC WO 12/08/2020 10:20 PM FINDINGS: Lungs: No pulmonary consolidation is seen. Pleural spaces: No pleural effusion or pneumothorax is demonstrated. Heart/Mediastinum: Cardiac monitoring leads overlie the exam. The heart is normal in size. Bones/joints: The visualized bony structures appear grossly intact, as seen. IMPRESSION: No active disease is seen in the chest. Thank you for allowing us to participate in the care of your patient. Dictated and Authenticated by: Perez Madrid MD CBC shows mild leukocytosis with a white blood cell count of 12.30, platelets 491, absolute neutrophil 7.40 CMP largely within normal limits. Covid is pending at this time. D-dimer is pending. D-dimer within normal limits. Covid is negative. Discussed results with patient who verbalizes understanding. Patient given an albuterol inhaler and instructed on use. Patient reports she feels a little bit better after using the inhaler. Discussed home care and follow-up increase fluids. This text was generated using [employer]ation system, please disregard any oddities of phrase or misspellings. HPI General Mode of arrival: ambulatory . Date/Time Provider Initiated Documentation: 07/22/21 17:44 . Limitations to Documentation: no limitations . Information obtained by: patient, RN notes reviewed and old records reviewed . HPI Narrative: 25-year-old female presents to the ER with chief complaint of chest pain, heaviness and URI type symptoms got worse over the last few weeks. Patient reports that she feels like she has croup. She has no wheezing on auscultation, she has a dry nonproductive cough. She had a negative Covid test 5 days ago. She has a past medical history of depression, anxiety disorder, ADHD, hyperlipidemia, GERD, migraines and obesity. She was recently prescribed anti-anxiety medication including hydroxyzine and Ativan. Related Data Home Medications Medication Instructions Recorded Confirmed onabotulinumtoxinA 100 unit 200 unit IM .Q 3 months ea 04/18/20 07/22/21 solution for injection triamcinolone acetonide 0.5 % 1 applic TOPICAL DAILY PRN #15 g 05/28/21 07/22/21 topical cream bupropion HCl 300 mg 24 hr tablet, 300 mg PO DAILY #90 tab 06/18/21 07/22/21 extended release buspirone 7.5 mg tablet 7.5 mg PO BID #180 tab 06/18/21 07/22/21 dextroamphetamine-amphetamine 10 10 mg PO TID #90 tab MDD 30mg 06/18/21 07/22/21 mg tablet hydroxyzine HCl 50 mg tablet 50 mg PO Q6H PRN #90 tab 06/18/21 07/10/21 levonorgestrel 1.5 mg tablet 1.5 mg PO ONCE #1 tab 07/02/21 07/10/21 prednisone 20 mg tablet See Rx Instructions PO DAILY #24 07/10/21 07/10/21 tab Previous Rx's Medication Instructions Recorded triamcinolone acetonide 0.5 % 1 applic TOPICAL DAILY PRN #15 g 05/28/21 topical cream bupropion HCl 300 mg 24 hr tablet, 300 mg PO DAILY #90 tab 06/18/21 extended release buspirone 7.5 mg tablet 7.5 mg PO BID #180 tab 06/18/21 dextroamphetamine-amphetamine 10 10 mg PO TID #90 tab MDD 30mg 06/18/21 mg tablet hydroxyzine HCl 50 mg tablet 50 mg PO Q6H PRN #90 tab 06/18/21 levonorgestrel 1.5 mg tablet 1.5 mg PO ONCE #1 tab 07/02/21 prednisone 20 mg tablet See Rx Instructions PO DAILY #24 07/10/21 tab Allergies Allergy/AdvReac Type Severity Reaction Status Date / Time sulfamethoxazole AdvReac Intermediate Nausea Verified 07/22/21 17:54 [From Bactrim] trimethoprim [From Bactrim] AdvReac Intermediate Nausea Verified 07/22/21 17:54 General Stated Complaint: Chest Pain TIARA: 3 Review of Systems All systems reviewed & are unremarkable except as noted in HPI and below PFSH All Active Problems (Updated 07/22/21 @ 20:54 by Wen Shipman) Viral upper respiratory illness (Acute) Depressive disorder (Chronic) Generalized anxiety disorder (Chronic) ADHD (attention deficit hyperactivity disorder) (Chronic) PCOS (polycystic ovarian syndrome) (Chronic) Hyperlipidemia (Chronic) Pityriasis rosea (Acute) Thrombocytosis (Chronic) GERD (gastroesophageal reflux disease) (Chronic) Migraine headache without aura (Chronic) Followed by [facility], Botox q12wks Obesity (Chronic) Active Problem List Thrombocytosis (Chronic) GERD (gastroesophageal reflux disease) (Chronic) Migraine headache without aura (Chronic) Depressive disorder (Chronic) ADHD (attention deficit hyperactivity disorder) (Chronic) PCOS (polycystic ovarian syndrome) (Chronic) Hyperlipidemia (Chronic) Generalized anxiety disorder (Chronic) Obesity (Chronic) Medical History Concussion Multiple concussions in childhood Surgical History H/O valvuloplasty (~1995) Cardiac valvuloplasty History of removal of ureteral stent (12/02/14) Right S/P appendectomy S/P cystoscopy with ureteral stent placement (11/18/14) Right Family History Mother PCOS (polycystic ovarian syndrome) Hyperlipidemia Breast cancer Type 2 diabetes mellitus Brain cancer Father Depression Hyperlipidemia Prostate cancer Brother Chronic headaches Maternal Grandfather No problems noted. Maternal Grandmother , at 63 Heart disease Type 2 diabetes mellitus Liver cancer Breast cancer Paternal Grandfather Type 2 diabetes mellitus Hyperlipidemia Paternal Grandmother No problems noted. Social History Smoking/Tobacco Use Status: Never Smoking risk assessment performed?: Yes Alcohol Intake: current Alcohol Intake frequency: holidays/special occasions only Alcohol type: beer, wine and hard liquor Drug use: Never Substance use type: does not use Caregiver/Support person: No Household members: family, children and other Details: Rivka Moreira. BF Manuelito. 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 Pets and animals: Yes Pets and animals: dog(s) Sexually active: Yes Do you think of yourself as: straight/heterosexual Current gender identity: female What is your relationship status?: refused to answer How often do you talk on the phone with friends or family?: three or more times per week How often do you get together with friends or relatives?: once per week How often do you attend latter-day or scientologist services?: decline to answer Do you belong to any clubs or organized social groups?: no Panel score (0-1 are the most socially isolated patients): 1 What type of physical activity do you participate in: yoga Duration: < 15 minutes/day Frequency: 3-4 times per week Claudia/Orthodox: None Special claudia needs: No Seatbelt use: always Helmet use: No Drive intox or ride w/intox sprinkler truck driver: No Do you feel safe at home: Yes Do you feel safe in your relationship?: Yes Female Reproductive History Menstrual control method: pills (12/2020 Mirena removed after 3 years and Amber OCPs intiated.) History History 2 Para Hx # Term Pregnancies Multiple births Hx # Pregnancies Ectopic pregnancies AB induced Hx Number of Living Children AB spontaneous 2 Exam Narrative Exam Narrative: Constitutional: Alert and oriented x3. Appears stated age. Normal body habitus. Head: Normocephalic, no trauma. Eyes: Pupils PERRL, Red reflex noted, EOM's intact. Eyelids symmetrical without lesions, discharge, or swelling. ENT: Bilateral TM's WNL, External ear normal to inspection, no mastoid TTP, swelling, or erythema, Nasal turbinates WNL, no nasal discharge. Normal dentition, Posterior pharynx WNL, no exudate. Chest: RRR, Normal S1, S2, distal pulses intact. Resp: Lungs clear to auscultation bilaterally, no wheezes, rales, or rhonchi. Abdomen: Soft, non-distended, Normoactive bowel sounds all 4 quads. Musculoskeletal: Normal gait, 5/5 strength to all four extremities. Skin: No suspicious rashes or lesions. Capillary refill less than 2 sec. Neurologic: Cranial nerves II-XII intact. Alert and oriented x 3. Motor: No deficits noted. Sensory: Intact bilaterally all 4 extremities. Reflexes: DTR's intact bilaterally.. Hematologic/Lymphatic: No ecchymosis, no lymphadenopathy. Course Vital Signs Vital signs: Vital Signs Temperature 36.7 C 07/22/21 17:50 Pulse 115 H 07/22/21 17:50 Respiratory Rate 20 07/22/21 17:50 Blood Pressure 102/62 07/22/21 17:50 Pulse Oximetry 100 07/22/21 17:50 Temperature 36.7 C 07/22/21 17:50 Pulse 115 H 07/22/21 17:50 Respiratory Rate 18 07/22/21 17:56 Respiratory Effort Non-Labored 07/22/21 17:56 Respiratory Depth Normal 07/22/21 17:56 Respiratory Pattern Normal 07/22/21 17:56 Blood Pressure 102/62 07/22/21 17:50 Blood Pressure Position Sitting 07/22/21 17:50 Pulse Oximetry 100 07/22/21 17:50 Oxygen Delivery Method Room Air 07/22/21 17:50 Oxygen Flow Rate 0 07/22/21 17:50
[2021-07-22 18:40] LABS: ALT 49 U/L (14-59); AST 21 U/L (15-37); Albumin 3.8 g/dL (3.4-5.0); Alkaline Phosphatase 99 U/L (46-116); Anion Gap 10.3 mmol/L (3-11); BUN 9 mg/dL (7-18); Bilirubin, Total 0.4 mg/dL (0.2-1.0); CO2 27.7 mmol/L (21.0-32.0); CREATININE 0.9 mg/dL (0.55-1.02); Calcium 9.2 mg/dL (8.5-10.1); Chloride 104 mmol/L (98-107); Glucose 78 mg/dL (74-106); Sodium 142 mmol/L (136-145); Troponin I < 50 ng/L (<or=60)
[2021-07-22 18:44] LABS: Abs Immature Grans 0.03 10^3/uL (0.0-0.06); Absolute Basophil Count 0.11 10^3/uL (0.0-0.2); Absolute Eosinophil Count 0.48 10^3/uL (0.0-0.7); Absolute Lymphocyte Count 3.22 10^3/uL (1.2-3.4); Absolute Monocyte Count 1.06 10^3/uL (0.1-0.8); Basophils % 0.9; Eosinophils % 3.9; HGB 15.3 g/dL (11.2-15.7); Immature Grans % 0.2; Lymphocytes % 26.2; MCH 28.4 pg (27.0-33.0); MCHC 32.6 % (32.0-36.0); MCV 87.2 fL (80-95); MPV 9.5 fL (8.0-11.0); Monocytes % 8.6; Neutrophils % 60.2; Nucleated RBC 0 %; Platelet Count 491 10^3/uL (130-400); RBC 5.39 10^6/uL (3.93-5.22); RDW 12.5 % (11.7-14.6); RDW-SD 39.9 fL
--- NOTE | 2021-07-22 19:00 | DI.VRAD_ITS ---
PROCEDURE INFORMATION: Exam: XR Chest Exam date and time: 07/22/2021 6:01 PM Age: 25 years old Clinical indication: Other: Generalized; Patient HX: Chest pain and cough TECHNIQUE: Imaging protocol: XR of the chest. Views: 1 view. COMPARISON: CT RENAL COLIC WO 12/08/2020 10:20 PM FINDINGS: Lungs: No pulmonary consolidation is seen. Pleural spaces: No pleural effusion or pneumothorax is demonstrated. Heart/Mediastinum: Cardiac monitoring leads overlie the exam. The heart is normal in size. Bones/joints: The visualized bony structures appear grossly intact, as seen. IMPRESSION: No active disease is seen in the chest. Dictated and Authenticated by: Perez Madrid MD. Ordering:SALO Carver MD
[2021-07-22 19:15] LABS: D-Dimer 215 ng/mlFEU (<500)
[2021-07-22 19:46] LABS: Source Nasal/Nares
[2021-07-22] MEDS: Inhaler, Assist Device 1 EACH MC (20:14)
[2021-07-22] MEDS: Albuterol HFA 8 GM 60 PUFF INH IH (20:14)
[2021-07-22 20:30] LABS: COVID-19 PCR Negative (Negative)
== END 2021-07-22 21:23 | disposition home or self-care (01) ==
PROVIDERS: Emergency Provider Registered Nurse Emergency; PCP Nurse Practitioner Family
DX: J06.9 Acute upper respiratory infection, unspecified (principal); R07.9 Chest pain, unspecified; R05.1 Acute cough; R00.0 Tachycardia, unspecified
CPT/HCPCS: 36415; 80053; 81025; 87635; 93005; 99284; 71045; 83735; 84484; 85025; 85379; 93010

== ENCOUNTER → 2022-06-10 01:34 | Outpatient (CLI) | payer MEDICAID, SELFPAY ==
--- NOTE | 2022-06-10 08:00 | DI.US_ITS ---
Exam(s) US PELVIS TRANSVAGINAL EXAM: US PELVIS TRANSVAGINAL CLINICAL HISTORY: irregular menses, hx of PCOS,e28.2,n92.6 TECHNIQUE: Transabdominal and transvaginal imaging was performed using standard protocol. COMPARISON: No exams were available for comparison FINDINGS: The bladder is unremarkable. KIDNEYS: Not imaged. UTERUS: Anteverted. 7.8 x 3.1 x 4.2 cm Endometrium: 10 mm Myometrium: Unremarkable. Cervix: Small nabothian cysts. Small amount of fluid within the cervical canal. OVARIES: Right: Cyst or mass: None. Volume 12.6 mL. Multiple tiny follicles. Left: Cyst or mass: None. Volume 11.8 mL. Multiple tiny follicles. DOPPLER: Color: Volume 12.6 mL no hyperemia. CUL-DE-SAC: Free fluid: None. IMPRESSION: 1. Normal-appearing uterus with endometrial stripe within normal limits. 2. Multiple bilateral tiny ovarian follicles.. DATA REPOSITORY:
== END ==
PROVIDERS: PCP Nurse Practitioner Family; Visit Provider Nurse Practitioner Family
DX: E28.2 Polycystic ovarian syndrome (principal); N92.6 Irregular menstruation, unspecified
CPT/HCPCS: 76830; 76856

== ENCOUNTER 2022-06-23 17:10 | Emergency (ER) | payer MEDICAID, SELFPAY ==
[2022-06-23 17:24] VITALS: BP 143/88; PULSE 127; RESP 20; TEMP 37.2; O2SAT 99
--- NOTE | 2022-06-23 18:15 | W.ED.GENAD ---
Discharge Plan Disposition Patient Disposition: Home Condition: Stable Discharge Details Clinical Impression: Pharyngitis Primary Care Provider: Suri Diaz ED Provider: Shai Escalante Home Meds and New Rx's Prescriptions: Continued ibuprofen 600 mg tablet 600 mg PO ONCE Qty: 1 0RF Rx Instructions: take one hour prior to procedure Botox 100 unit recon soln 200 unit IM .Q 3 months Rx Instructions: pt reports that she has this injection every 3 months at [facility]. -hb triamcinolone acetonide 0.5 % cream 1 applic topical DAILY PRN (Reason: dermatitis) Qty: 15 4RF Rx Instructions: Apply small amount to fingers daily as needed for dermatitis dextroamphetamine-amphetamine [Adderall] 10 mg tablet 10 mg PO BID-TID MDD 30mg Qty: 84 0RF Rx Instructions: Take 1 tablet two to three times a day; administer doses at least 4-6 hours apart Discharge Instructions Instructions: Pharyngitis (ED) Additional Instructions: It is important that you continue to get plenty of rest and stay well-hydrated during illness. At this time is presumed that you have a viral illness and do not need antibiotics but we will contact you if your culture comes back positive for any need of further treatment. Otherwise continue to use [id number] ibuprofen and throat lozenges to help with your symptoms. If you develop any new or significant worsening of symptoms return to the emergency department for reassessment otherwise follow-up with your primary care provider if not improving in the next week. Referrals: Suri Diaz, [facility] [Primary Care Provider] - 1 week (If not improving) Discharge Data Discharge Date/Time-TO BE ENTERED AT DEPARTURE: 06/23/22 18:29 Medical Decision Making Patient presenting to the emergency department for chief complaint of sore throat. She reports this is been going on for the past 4 days and she has history of strep throat as a child. 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 Patient does also state a mild dry cough but states that is more due to throat irritation than 2 anything else. Exam consistent with Pharyngitis with tonsils having slight hypertrophy and erythema but HEENT exam, lung sounds, and cardiac exam are otherwise unremarkable.. no signs of deep neck space infection ( Retropharyngeal abscess, Juan's angina, Parapharyngeal space infection, Peritonsillar Abscess (DERMATOLOGY PROCEDURAL PHYSICIAN)) or Epiglottitis. Pt non toxic and stable. Will give patient single dose of Decadron. Rapid strep was performed at triage and was negative and reflex to strep culture which I feel is appropriate. Did offer patient COVID and influenza testing but she denied these test at this time due to stating that she already tested for COVID at home and was negative. Encourage patient to continue to use uxwp-[id number]-[id number] medications as needed for discomfort and to return for any new or worsening symptoms pending strep culture. After discussion of diagnosis and plan of care patient has no further needs, questions, or concerns and states clear understanding to return to the emergency department for any worsening symptoms. This documentation was generated using [employer] dictation system, please disregard any oddities of phrase or misspellings. Sign Out No HPI General Mode of arrival: ambulatory. Date/Time Provider Initiated Documentation: 06/23/22 18:04. Limitations to Documentation: no limitations. Information obtained by: patient. History of Present Illness 26 year old F presents to the emergency department with the chief complaint of Sore throat, described as moderate, with intensity rated at 7. Quality is described as aching, and is localized to the mouth (Sore throat). Patient reports radiation to (Right ear). Patient started experiencing this day(s) (4) and it has been constant. No relieving factors improve symptom(s), No exacerbating factors reported . Patient notes fever/chills and malaise. Patient did receive the following treatments prior to arrival, NSAID Related Data Home Medications Medication Instructions Recorded Confirmed onabotulinumtoxinA 100 unit 200 unit IM .Q 3 months 04/18/20 06/23/22 solution for injection (Botox) ibuprofen 600 mg tablet 600 mg PO ONCE pain #1 tab 03/07/22 06/23/22 dextroamphetamine-amphetamine 10 10 mg PO BID-TID #84 tabs 04/16/22 06/23/22 mg tablet (Adderall) triamcinolone acetonide 0.5 % 1 applic topical DAILY PRN 04/16/22 06/23/22 topical cream dermatitis #15 grams Previous Rx's Medication Instructions Recorded ibuprofen 600 mg tablet 600 mg PO ONCE pain #1 tab 03/07/22 dextroamphetamine-amphetamine 10 10 mg PO BID-TID #84 tabs 04/16/22 mg tablet (Adderall) triamcinolone acetonide 0.5 % 1 applic topical DAILY PRN 04/16/22 topical cream dermatitis #15 grams Allergies Allergy/AdvReac Type Severity Reaction Status Date / Time sulfamethoxazole AdvReac Intermediate Nausea Verified 06/23/22 17:28 [From Bactrim] trimethoprim [From Bactrim] AdvReac Intermediate Nausea Verified 06/23/22 17:28 General Stated Complaint: Sorethroat TIARA: 4 Review of Systems Constitutional Constitutional: Reports body ache(s), Reports chills, Reports fever(s), Denies headache(s) and Reports malaise Eyes Eyes: Denies eye discharge ENT Ears, Nose, Mouth, and Throat: Reports as per HPI, Denies ear discharge, Reports otalgia, Denies headache(s), Denies nasal congestion, Denies nasal discharge, Denies neck pain, Denies sinus pain, Reports sore throat and Denies throat swelling Cardiovascular Cardiovascular: Denies chest pain and Denies dyspnea Respiratory Respiratory: Reports cough and Denies dyspnea Musculoskeletal Musculoskeletal: Denies joint swelling and Denies neck pain Integumentary/Breasts Skin/Breast: Denies rash Neurologic Neurologic: Denies headache(s) Allergic/Immunologic Allergic/Immunologic: Denies throat swelling PFSH All Active Problems (Updated 06/23/22 @ 18:23 by Shai Escalante NP) Pharyngitis (Acute) Hyperlipidemia (Chronic) PCOS (polycystic ovarian syndrome) (Chronic) Use metformin for period of time. We will skip menses for 2 months Menses, irregular (Chronic) ADHD (attention deficit hyperactivity disorder) (Chronic) Thrombocytosis (Chronic) Migraine headache without aura (Chronic) Followed by [facility] Headache [facility], Botox q12wks Obesity (Chronic) Atopic dermatitis (Chronic) Medical History Concussion Multiple concussions in childhood GERD (gastroesophageal reflux disease) Surgical History H/O valvuloplasty (~1995) Cardiac valvuloplasty History of removal of ureteral stent (12/02/14) Right S/P appendectomy S/P cystoscopy with ureteral stent placement (11/18/14) Right Family History Mother PCOS (polycystic ovarian syndrome) Hyperlipidemia Breast cancer Type 2 diabetes mellitus Brain cancer Father Depression Hyperlipidemia Prostate cancer Brother Chronic headaches Maternal Grandfather No problems noted. Maternal Grandmother , at 63 Heart disease Type 2 diabetes mellitus Liver cancer Breast cancer Paternal Grandfather Type 2 diabetes mellitus Hyperlipidemia Paternal Grandmother No problems noted. Social History Smoking/Tobacco Use Status: Never Smoking risk assessment performed?: Yes Alcohol Intake: current Alcohol Intake frequency: holidays/special occasions only Alcohol type: beer, wine and hard liquor Drug use: Never Substance use type: does not use Caregiver/Support person: No Household members: family, children and other Details: Crow- Harish. BF Manuelito. 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 Pets and animals: Yes Pets and animals: dog(s) Sexually active: Yes Do you think of yourself as: straight/heterosexual Current gender identity: female What is your relationship status?: refused to answer How often do you talk on the phone with friends or family?: three or more times per week How often do you get together with friends or relatives?: once per week How often do you attend oriental orthodox or caodaism services?: decline to answer Do you belong to any clubs or organized social groups?: no Panel score (0-1 are the most socially isolated patients): 1 What type of physical activity do you participate in: yoga Duration: < 15 minutes/day Frequency: 3-4 times per week Claudia/Worship: None Special claudia needs: No Seatbelt use: always Helmet use: No Drive intox 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 Do you feel safe at home: Yes Do you feel safe in your relationship?: Yes Female Reproductive History Menstrual control method: pills History History 2 Para Hx # Term Pregnancies Multiple births Hx # Pregnancies Ectopic pregnancies AB induced Hx Number of Living Children AB spontaneous 2 Exam Const General: cooperative, comfortable and no acute distress Orientation: alert and awake HENMT Head: normal to inspection, normocephalic and atraumatic Ears: hearing grossly normal bilaterally and TM's normal bilaterally General nose exam: external nose normal Face and sinus: no erythema Mouth: oral mucosae normal, no drooling, no muffled voice and no trismus Throat: abnormal tonsil bilaterally erythema and hypertrophy 1+; no exudates, posterior oropharynx abnormal erythema, uvula not displaced and no uvular edema Neck Neck: normal visual inspection, full ROM, no lymphadenopathy, no meningeal signs, trachea midline and supple Resp Effort & Inspection: normal respiratory effort, able to speak in complete sentences and cough Quality of cough: dry Auscultation: clear to auscultation bilaterally Cardio Rate: regular rate Rhythm: regular rhythm Heart Sounds: S1 normal, S2 normal, normal S1 and S2, no click, no gallops, no murmurs and no rubs Skin General skin exam: no rashes or lesions noted and dry skin (warm) Neuro General: patient alert, patient awake, patient oriented x3, gait normal and moves all extremities Cognition: normal cognition Speech: speech normal Course Vital Signs Vital signs: Vital Signs Temperature 37.2 C 06/23/22 17:24 Pulse 127 H 06/23/22 17:24 Respiratory Rate 20 06/23/22 17:24 Blood Pressure 143/88 H 06/23/22 17:24 Pulse Oximetry 99 06/23/22 17:24 Temperature 37.2 C 06/23/22 17:24 Temperature Source Oral 06/23/22 17:24 Pulse 127 H 06/23/22 17:24 Respiratory Rate 20 06/23/22 17:24 Respiratory Effort Non-Labored 06/23/22 17:27 Blood Pressure 143/88 H 06/23/22 17:24 Blood Pressure Position Sitting 06/23/22 17:24 Pulse Oximetry 99 06/23/22 17:24 Oxygen Delivery Method Room Air 06/23/22 17:24 Oxygen Flow Rate 0 06/23/22 17:24 Pain Level 8 06/23/22 17:24 Lab/Test Results Lab/Test Results: 06/23/22 17:30 Pharynx Group A Streptococcus Culture - Pending POC Strep Test-SUSANNA(Rapid) Start: 06/23/22 17:38 Freq: .Rapid Strep Test Status: Active Protocol: Document 06/23/22 17:38 RM (Rec: 06/23/22 17:38 RM [id number]) Strep test-SUSANNA(Rapid)-POC POC-Strep test-SUSANNA (Rapid) Negative POC-Strep test-SUSANNA (Rapid) Negative
[2022-06-23] MEDS: Dexamethasone 10 MG/ML VIAL PO (18:23)
--- NOTE | 2022-06-24 18:12 | NUR.NOTE ---
PAtient called looking questioning why a prescription was not at her pharmacy. No prescription was prescribed.:
--- NOTE | 2022-06-25 12:10 | W.ED.FU ---
Date of service: 06/25/22 Time of Service: 12:11 Follow Up Plan: pt's strep culture grew strep A, called and spoke with pt and she is still having a sore throat so amoxicillin 500mg bid called in for the patient, advised to f/u with pcp and advised to return if worsening or unable to swallow liquids.
--- NOTE | 2022-06-25 12:28 | NUR.NOTE ---
Nursing Note: Per Dr. Tashi Estrada prescription called in to [facility] Amoxicillin 500mg BID 10 days total #20 no refills.
== END 2022-06-23 18:29 | disposition home or self-care (01) ==
PROVIDERS: Emergency Provider Nurse Practitioner Family; PCP Nurse Practitioner Family
DX: J02.0 Streptococcal pharyngitis (principal)
CPT/HCPCS: 87880; 99283; 87081; J1100

== ENCOUNTER 2022-10-04 11:06 | Outpatient (CLI) | payer MEDICAID, SELFPAY ==
[2022-10-04 10:17] LABS: Glucose,1 Hr (Glucola) 153 mg/dL (80-140)
== END 2022-10-04 11:07 | disposition home or self-care (01) ==
LOC: LBO 11:06
PROVIDERS: PCP Nurse Practitioner Family; Visit Provider Obstetrics & Gynecology Maternal & Fetal Medicine
DX: G43.701 Chronic migraine without aura, not intractable, with status migrainosus (principal); O99.211 Obesity complicating pregnancy, first trimester; E66.01 Morbid (severe) obesity due to excess calories; Z87.74 Personal history of (corrected) congenital malformations of heart and circulatory system; R73.09 Other abnormal glucose
CPT/HCPCS: 36415; 82950; 82947

== ENCOUNTER 2022-11-03 09:40 | Emergency (ER) | payer MEDICAID, SELFPAY ==
[2022-11-03 09:46] VITALS: BP 129/111; PULSE 118; RESP 18; TEMP 36.7; O2SAT 99
--- NOTE | 2022-11-03 10:10 | W.ED.GENAD ---
Discharge Plan Disposition Patient Disposition: Home Condition: Stable Discharge Details Clinical Impression: Vaginal bleeding before 22 weeks gestation Primary Care Provider: Suri Diaz ED Provider: Tashi Estrada Home Meds and New Rx's Prescriptions: Continued aspirin [Adult Aspirin Regimen] 81 mg tablet,delayed release (DR/EC) 162 mg PO DAILY acetaminophen [Tylenol] 325 mg capsule 650 mg PO ONCE PRN folic acid 800 mcg tablet 0.8 mg PO DAILY prenat.vits,anneliese,[id number] Tablet 1 tab PO DAILY ondansetron HCl 4 mg tablet 4 mg PO Q6H PRN (Reason: nausea and vomiting) Qty: 30 5RF Botox 100 unit recon soln 200 unit IM .Q 3 months Patient Comments: not taking Rx Instructions: pt reports that she has this injection every 3 months at [facility] [place]. -hb triamcinolone acetonide 0.5 % cream 1 applic topical DAILY PRN (Reason: dermatitis) Qty: 15 4RF Patient Comments: not taking Rx Instructions: Apply small amount to fingers daily as needed for dermatitis dextroamphetamine-amphetamine [Adderall] 10 mg tablet 10 mg PO BID-TID MDD 30mg Qty: 84 0RF Patient Comments: not taking Rx Instructions: Take 1 tablet two to three times a day; administer doses at least 4-6 hours apart Discharge Instructions Additional Instructions: Your bedside ultrasound showed a live intrauterine and your blood type is O+ so you don't need any additional medications at this time Follow up with your obgyn this week if you feel more ill, have severe pain or difficulty breathing return to the emergency department Medical Decision Making 27 yo female g1 who is approximately 14 weeks and has had a u/s at [facility] where she receives care showing iup, comes in with pelvic cramping and vaginal bleeding this morning when she woke up. No fevers, no pain, not continuous bleeding, states it was as if she started her period this morning. She arrive stable in no distress, no pain or cramping now or bleeding. Per [facility] record she is O+ blood type. She has no abdominal tenderness. I performed a bedside u/s and she has a live iup with fhr of 150.Discussed with pt likely threatened vs she may have had a small subchronionic hemorrhage, offered speculum but unlikely to provide any change in management so deferred and she will f/u with obgyn this week, return precautions given Differential Diagnosis Differential Diagnosis: threatened , subchorionic hematoma, HPI General Mode of arrival: ambulatory. Date/Time Provider Initiated Documentation: 11/03/22 09:41. Limitations to Documentation: no limitations. Information obtained by: patient. History of Present Illness 27 year old F presents to the emergency department with the chief complaint of vaginal bleeding, described as mild, Patient started experiencing this hour(s) (2) and it has been now resolved. No relieving factors improve symptom(s), No exacerbating factors reported . Patient notes no other symptoms.. Patient did receive the following treatments prior to arrival, none Related Data Home Medications Medication Instructions Recorded Confirmed onabotulinumtoxinA 100 unit 200 unit IM .Q 3 months 04/18/20 09/23/22 solution for injection (Botox) dextroamphetamine-amphetamine 10 10 mg PO BID-TID #84 tabs 04/16/22 09/23/22 mg tablet (Adderall) triamcinolone acetonide 0.5 % 1 applic topical DAILY PRN 04/16/22 09/23/22 topical cream dermatitis #15 grams acetaminophen 325 mg capsule 650 mg PO ONCE PRN 09/17/22 11/03/22 (Tylenol) folic acid 800 mcg tablet 0.8 mg PO DAILY 09/17/22 11/03/22 ondansetron HCl 4 mg tablet 4 mg PO Q6H PRN nausea and 09/17/22 11/03/22 vomiting #30 tabs prenat.vits,anneliese,czu-qnnl-yvieu 1 tab PO DAILY 09/17/22 11/03/22 aspirin 81 mg tablet,delayed 162 mg PO DAILY 09/23/22 11/03/22 release (Adult Aspirin Regimen) Previous Rx's Medication Instructions Recorded dextroamphetamine-amphetamine 10 10 mg PO BID-TID #84 tabs 04/16/22 mg tablet (Adderall) triamcinolone acetonide 0.5 % 1 applic topical DAILY PRN 04/16/22 topical cream dermatitis #15 grams ondansetron HCl 4 mg tablet 4 mg PO Q6H PRN nausea and 09/17/22 vomiting #30 tabs Allergies Allergy/AdvReac Type Severity Reaction Status Date / Time sulfamethoxazole AdvReac Intermediate Nausea Verified 11/03/22 09:47 [From Bactrim] trimethoprim [From Bactrim] AdvReac Intermediate Nausea Verified 11/03/22 09:47 General Stated 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 TIARA: 3 Review of Systems All systems reviewed & are unremarkable except as noted in HPI and below Constitutional Constitutional: Denies chills, Denies fever(s) and Denies weakness Cardiovascular Cardiovascular: Denies chest pain and Denies dyspnea Respiratory Respiratory: Denies cough and Denies dyspnea Gastrointestinal Gastrointestinal: Denies abdominal pain, Denies nausea and Denies vomiting Neurologic Neurologic: Denies weakness [facility] All Active Problems (Updated 11/03/22 @ 10:14 by Tashi Estrada MD) Vaginal bleeding before 22 weeks gestation (Acute) (Acute) Hyperlipidemia (Chronic) PCOS (polycystic ovarian syndrome) (Chronic) Use metformin for period of time. We will skip menses for 2 months Menses, irregular (Chronic) ADHD (attention deficit hyperactivity disorder) (Chronic) Thrombocytosis (Chronic) Migraine headache without aura (Chronic) Followed by [facility] Head[facility], Botox q12wks Obesity (Chronic) Atopic dermatitis (Chronic) Medical History (Updated 11/03/22 @ 10:14 by Tashi Estrada MD) Concussion Multiple concussions in childhood GERD (gastroesophageal reflux disease) Migraine headache with aura Surgical History H/O valvuloplasty (~1995) Cardiac valvuloplasty History of removal of ureteral stent (12/02/14) Right S/P appendectomy S/P cystoscopy with ureteral stent placement (11/18/14) Right Family History Mother PCOS (polycystic ovarian syndrome) Hyperlipidemia Breast cancer Type 2 diabetes mellitus Brain cancer Father Depression Hyperlipidemia Prostate cancer Brother Chronic headaches Maternal Grandfather No problems noted. Maternal Grandmother , at 63 Heart disease Type 2 diabetes mellitus Liver cancer Breast cancer Paternal Grandfather Type 2 diabetes mellitus Hyperlipidemia Paternal Grandmother No problems noted. Social History Smoking/Tobacco Use Status: Never Smoking risk assessment performed?: Yes Alcohol Intake: never Drug use: Never Substance use type: does not use Caregiver/Support person: No Household members: family, children and other Details: D- Aaliyha. BF Manuelito. 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 Pets and animals: Yes Pets and animals: dog(s) Sexually active: Yes Do you think of yourself as: straight/heterosexual Current gender identity: female What is your relationship status?: refused to answer How often do you talk on the phone with friends or family?: three or more times per week How often do you get together with friends or relatives?: once per week How often do you attend scientologist or jain services?: decline to answer Do you belong to any clubs or organized social groups?: no Panel score (0-1 are the most socially isolated patients): 1 What type of physical activity do you participate in: yoga Duration: < 15 minutes/day Frequency: 3-4 times per week Claudia/Yarsani: None Special claudia needs: No Seatbelt use: always Helmet use: No Drive 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 Do you feel safe at home: Yes Do you feel safe in your relationship?: Yes Female Reproductive History Menstrual control method: pills History History 2 Para Hx # Term Pregnancies Multiple births Hx # Pregnancies Ectopic pregnancies AB induced Hx Number of Living Children AB spontaneous 2 Exam Const General: no acute distress Orientation: alert HENMT Head: normal to inspection Ears: external ears normal General nose exam: external nose normal Mouth: moist mucous membranes Eyes General: appearance normal, both eyes and all related structures Neck Neck: normal visual inspection Resp Effort & Inspection: normal respiratory effort and able to speak in complete sentences Cardio Rate: regular rate GI Palpation: soft and nontender Skin General skin exam: no rashes or lesions noted Neuro General: patient alert and patient oriented x3 Extrem General: normal to inspection Psych Mental Status: mental status grossly normal Course Vital Signs Vital signs: Vital Signs Temperature 36.7 C 11/03/22 09:46 Pulse 118 H 11/03/22 09:46 Respiratory Rate 18 11/03/22 09:46 Blood Pressure 129/111 H 11/03/22 09:46 Pulse Oximetry 99 11/03/22 09:46 Temperature 36.7 C 11/03/22 09:46 Temperature Source Oral 11/03/22 09:46 Pulse 118 H 11/03/22 09:46 Respiratory Rate 18 11/03/22 09:46 Respiratory Effort Normal, Non-Labored 11/03/22 09:46 Blood Pressure 129/111 H 11/03/22 09:46 Pulse Oximetry 99 11/03/22 09:46 Oxygen Delivery Method Room Air 11/03/22 09:46 Oxygen Flow Rate 0 11/03/22 09:46 Pain Level 5 11/03/22 09:54
--- NOTE | 2022-11-03 10:11 | NUR.NOTE ---
Looked up [facility] records for patient's blood type for Dr. Estrada.Nursing Note:
[2022-11-03 10:29] VITALS: BP 129/74
--- NOTE | 2022-11-05 11:57 | NUR.NOTE ---
Nursing Note: Faxed request from [facility] requesting the records from the 11/03/22 visit. I faxed to them the MD note, RN note, and discharge instructions.
== END 2022-11-03 10:31 | disposition home or self-care (01) ==
PROVIDERS: Emergency Provider Emergency Medicine; PCP Nurse Practitioner Family
DX: O20.9 Hemorrhage in early pregnancy, unspecified (principal)
CPT/HCPCS: 99284; 99282

== ENCOUNTER 2022-11-07 16:32 | Outpatient (CLI) | payer MEDICAID, SELFPAY ==
--- NOTE | 2022-11-07 14:43 | DI.US_ITS ---
Exam(s) US OB 2-3 TRIMESTER W MOD EXAM: US OB 2-3 TRIMESTER W MOD CLINICAL HISTORY: bleeding at 16w ega O20.9 HEMORRHAGE EARLLY Z34.92. TECHNIQUE: Transabdominal obstetrical ultrasound performed. COMPARISON: No exams were available for comparison FINDINGS: Number of fetuses: One. position: Variable Placental grade: 1 Placental location: Posterior. No evidence of previa. No evidence subchorionic hemorrhage. BIOMETRIC DATA: BPD: 28mm = 15+ 1 weeks HC: 110mm = 15+ 2 weeks AC: 93mm = 15+ 3 weeks FL: 17mm = 14.6 weeks EFW: 117 grms Composite Age: 15+ 1 weeks EDC by US: 30 April 2023 Heart Rate: !ErrorBPM Amniotic fluid : Amount of fluid is within normal limits. IMPRESSION: 1. Single live intrauterine gestation with composite age of 15+ 1 weeks. 2. Placenta appears intact. No evidence of previa. DATA REPOSITORY:
== END 2022-11-07 16:52 ==
LOC: DI 16:33
PROVIDERS: PCP Nurse Practitioner Family; Visit Provider Obstetrics & Gynecology Gynecology
DX: O20.9 Hemorrhage in early pregnancy, unspecified (principal); Z34.92 Encounter for supervision of normal pregnancy, unspecified, second trimester
CPT/HCPCS: 76805

== ENCOUNTER 2022-11-25 03:02 | Outpatient (CLI) | payer MEDICAID, SELFPAY ==
[2022-11-27 09:47] LABS: Hepatitis C Ab w Rflx HCV PCR Negative (Negative)
[2022-11-27 11:46] LABS: Varicella IgG Antibody Positive (See Note)
== END 2022-11-25 03:03 | disposition home or self-care (01) ==
LOC: LBO 03:02
PROVIDERS: PCP Nurse Practitioner Family; Visit Provider Advanced Practice Midwife
DX: Z34.92 Encounter for supervision of normal pregnancy, unspecified, second trimester (principal); Z3A.18 18 weeks gestation of pregnancy
CPT/HCPCS: 36415; 86787; 86803; 86850; 86900; 86901

== ENCOUNTER 2022-12-23 15:33 | Outpatient (RCR) | payer MEDICAID, SELFPAY ==
[2022-12-23 18:56] LABS: *AMPHETAMINES SCREEN URINE Negative (Negative); *BARBITURATES SCREEN URINE Negative (Negative); *BENZODIAZEPINES SCREEN URINE Negative (Negative); Cannabinoids THC Negative (Negative); Cocaine Screen,Urine Negative (Negative); METHADONE URINE SCREEN Negative (Negative); OPIATES URINE SCREEN Negative (Negative)
[2022-12-23 18:58] LABS: Tricyclic Antidepressants Negative (Negative)
[2022-12-31 20:27] LABS: Buprenorphine Negative ng/mL (Cutoff: 5.0); Norbuprenorphine Negative ng/mL (Cutoff: 2.5)
--- NOTE | 2023-01-16 15:47 | PDOC.ANES ---
Date of service: 01/16/23 Time of Service: 15:47 Anesthesia Note Report Anesthesia Note: Anesthesia was consulted to ask for our opinion if Norma would be a good candidate to labor/deliver at [facility]. After reviewing her chart, our answer was that she would be better served at a larger hospital. The following were the reasons: 1) Her BMI 24 weeks is between 52 and 54 ([facility])with 12 weeks until planned delivery. This places her closer to our BMI cut off of 60. 2) We may have limited providers and resources compared to other larger hospitals, especially during off hours which may limit services for her given anticipated procedural difficulty given her BMI. 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 This information was shared with her by OB provider and patient requested to talk to one of us. I called and spoke to Norma today. I reiterated these points with the exception of #3. She explained that her 22 week US was done and [facility] said there is no concern for cardiac issue and echo was no longer required. We specifically talked about labor analgesia options and what some of the challenges may be. We also discussed the possibility of and the challenges with spinal anesthesia and increased risk of general anesthesia specifically given her BMI and that after hours we have 1 anesthesia provider whereas a larger facility would have more anesthesia resources for her. She asked what would happen if she were to present here in labor and I told her if she were in labor, we would do our best to care for her and her child but we want to give what we believe is our safest/best plan to her now to maximize chances of a safe, successful, healthy and satisfying experience which would be to plan delivery at a larger hospital with more resources. I attemtped to call Norma back with no answer after I spoke to OB who recommends that she followup with her appointment in 3 weeks to discuss further options.
== END 2023-01-17 23:59 | disposition home or self-care (01) ==
LOC: LBN 15:33
PROVIDERS: PCP Nurse Practitioner Family; Visit Provider Obstetrics & Gynecology Gynecology
DX: Z34.91 Encounter for supervision of normal pregnancy, unspecified, first trimester (principal)
CPT/HCPCS: 80307; 80348

== ENCOUNTER → 2023-03-12 03:36 | Outpatient (CLI) | payer MEDICAID, SELFPAY ==
--- NOTE | 2023-03-12 08:15 | DI.US_ITS ---
Exam(s) US OB NELL WEIGHT EXAM: US OB NELL WEIGHT CLINICAL HISTORY: growth,OBESITY,Z34.92. TECHNIQUE: Transabdominal obstetrical ultrasound performed. COMPARISON: US US OB 2-3 TRIMESTER W MOD from 11/07/2022 FINDINGS: Number of fetuses: 1 position: CEPHALIC Placental location: POSTERIOR No evidence of previa. BIOMETRIC DATA: BPD: 8.19 cm, 32 weeks 6 days. HC: 30.18 cm, 33 weeks 4 days. AC: 29.34 cm, 33 weeks 2 days. FL: 6.32 cm, 32 weeks 5 days. EFW: 2124.58 g, 4 lb 11 oz, 44.6 % Composite Age: 33 weeks 1 day WEST: 04/29/2023 Heart Rate: 132 bpm Amniotic fluid index: 14.66 cm. Visually, amount of fluid is within normal limits. IMPRESSION: 1. Single live intrauterine gestation as above. 2. Estimated weight is 2125gms. This is the 45th percentile. 3. Amniotic fluid index is 14.7 cm. Visually within normal limits. DATA REPOSITORY:
== END ==
PROVIDERS: PCP Nurse Practitioner Family; Visit Provider Obstetrics & Gynecology
DX: E66.9 Obesity, unspecified (principal); Z34.93 Encounter for supervision of normal pregnancy, unspecified, third trimester
CPT/HCPCS: 76816

== ENCOUNTER 2023-03-17 06:02 | Outpatient (CLI) | payer MEDICAID, SELFPAY ==
[2023-03-17 09:18] VITALS: BP 119/73; PULSE 107; TEMP 36.6
[2023-03-17 09:36] VITALS: BP 119/73; PULSE 107
--- NOTE | 2023-03-17 17:49 | PDOC.NST_ITS ---
Date of service: 03/17/23 Time of Service: 09:00 NST Evaluation Reason for NST Reasons for Nonstress Test: OTHER, SEE COMMENT Reason for NST Other: High BMI Gestational Age Gestational Age in Weeks and Days: 33 Weeks and 5Days Test and Monitor Explained Test/Monitor Explained: Test Explained, Monitor Explained and Patient Verbalized Understanding Vital Signs Blood Pressure: 119/73 Pulse: 107 Temperature: 97.9 F Urine Results Urine Protein: Negative Urine Ketones: Negative Urine Glucose: Negative Urine Blood: Negative NST Information Date on Monitor: 03/17/23 Time on Monitor: 09:24 Date off Monitor: 03/17/23 Time off Monitor: 09:49 Total Time on Monitor: 25 NST Interventions: PO Hydration Contraction Frequency: 0 NST Evaluation Patient States Movement: Present FHR Baseline: 135 Variability: Moderate 6-25 bpm Accelerations: 15x15 Decelerations: None NST Results: Reactive Note Ultrasound Done: N/A. NST Note Note: Pt has appt at [facility] in [place] and hopes to schedule an elective PCS. Reviewed niko sono with EFW 45%ile. NST Reviewed and Verified by: Krystyna Sumner
[2023-03-17 17:52] VITALS: BP 119/73; PULSE 107; TEMP 36.6
== END 2023-03-17 10:06 | disposition home or self-care (01) ==
LOC: BCD 06:04 → OBS 08:31
PROVIDERS: PCP Nurse Practitioner Family; Visit Provider Obstetrics & Gynecology
DX: O99.213 Obesity complicating pregnancy, third trimester (principal); Z3A.33 33 weeks gestation of pregnancy
CPT/HCPCS: 59025

== ENCOUNTER 2023-04-09 14:15 | Outpatient (CLI) | payer MEDICAID, SELFPAY ==
[2023-04-09 14:53] VITALS: BP 123/75; PULSE 99
[2023-04-09 14:59] VITALS: BP 123/75; PULSE 99; TEMP 36.6
--- NOTE | 2023-04-11 11:05 | W.OBNST ---
Date of service: 04/11/23 Time of Service: 11:05 NST Evaluation Reason for NST Reasons for Nonstress Test: GDM-DIET CONTROLLED Gestational Age Gestational Age in Weeks and Days: 37 Weeks and 0Days Test and Monitor Explained Test/Monitor Explained: Test Explained, Monitor Explained and Patient Verbalized Understanding Vital Signs Blood Pressure: 123/75 Pulse: 99 Temperature: 97.9 F Urine Results Urine Protein: Negative Urine Ketones: Negative Urine Glucose: Negative Urine Blood: Negative NST Information Date on Monitor: 04/09/23 Time on Monitor: 14:03 Date off Monitor: 04/09/23 Time off Monitor: 14:40 Total Time on Monitor: 37 NST Interventions: Notify Provider Contraction Frequency: 0 NST Evaluation Patient States Movement: Present FHR Baseline: 150 Variability: Moderate 6-25 bpm Accelerations: 15x15 Decelerations: None NST Results: Reactive Note Ultrasound Done: N/A. NST Note Note: Reactive category 1 strip performed 04/09/2023 in conjunction with visit. NST Reviewed and Verified by: Gail Jay
[2023-04-11 11:06] VITALS: BP 123/75; PULSE 99; TEMP 36.6
== END 2023-04-09 15:02 | disposition home or self-care (01) ==
LOC: BCD 14:17 → OBS 14:21
PROVIDERS: PCP Nurse Practitioner Family; Visit Provider Obstetrics & Gynecology Gynecology
DX: O24.410 Gestational diabetes mellitus in pregnancy, diet controlled (principal); Z3A.37 37 weeks gestation of pregnancy
CPT/HCPCS: 59025

== ENCOUNTER 2023-04-18 04:58 | Outpatient (CLI) | payer MEDICAID, SELFPAY ==
[2023-04-18 14:46] VITALS: BP 129/82; PULSE 89; TEMP 36.6
[2023-04-18 14:51] VITALS: BP 129/82; PULSE 89
--- NOTE | 2023-04-18 16:44 | W.OBNST ---
Date of service: 04/18/23 Time of Service: 16:44 NST Evaluation Reason for NST Reasons for Nonstress Test: OTHER, SEE COMMENT Reason for NST Other: Increased BMI Gestational Age Gestational Age in Weeks and Days: 38 Weeks and 2Days Test and Monitor Explained Test/Monitor Explained: Test Explained and Monitor Explained Vital Signs Blood Pressure: 129/82 Pulse: 89 Temperature: 97.9 F Urine Results Urine Protein: Negative Urine Ketones: Negative Urine Glucose: Negative Urine Blood: Negative NST Information Date on Monitor: 04/18/23 Time on Monitor: 14:48 Date off Monitor: 04/18/23 Time off Monitor: 15:29 Total Time on Monitor: 41 NST Interventions: None Contraction Frequency: None NST Evaluation Patient States Movement: Present FHR Baseline: 135 Variability: Moderate 6-25 bpm Accelerations: 15x15 Decelerations: None NST Results: Questionable NST Results Other: Segments of continuous strip reactive with visible accelerations Note Ultrasound Done: N/A. NST Note Note: Reactive NST. Continuous monitoring difficult because of active fetus. Plan to return next week for repeat NST. NST Reviewed and Verified by: Rosibel Valentine
[2023-04-18 16:45] VITALS: BP 129/82; PULSE 89; TEMP 36.6
== END 2023-04-18 15:30 | disposition home or self-care (01) ==
LOC: BCD 05:00 → OBS 13:48 → BCD 14:37 → OBS 14:39
PROVIDERS: PCP Nurse Practitioner Family; Visit Provider Obstetrics & Gynecology Gynecology
DX: O99.213 Obesity complicating pregnancy, third trimester (principal); Z3A.38 38 weeks gestation of pregnancy
CPT/HCPCS: 59025

== ENCOUNTER 2023-04-25 08:12 | Outpatient (CLI) | payer MEDICAID, SELFPAY ==
[2023-04-25 14:29] VITALS: BP 124/62; PULSE 100
[2023-04-25 14:30] VITALS: BP 124/62; PULSE 100; TEMP 36.7
[2023-04-25 15:10] VITALS: BP 124/62; PULSE 100; TEMP 36.7
--- NOTE | 2023-04-25 15:10 | W.OBNST ---
Date of service: 04/25/23 Time of Service: 15:10 NST Evaluation Reason for NST Reasons for Nonstress Test: OTHER, SEE COMMENT Reason for NST Other: high BMI Gestational Age Gestational Age in Weeks and Days: 39 Weeks and 2Days Test and Monitor Explained Test/Monitor Explained: Test Explained, Monitor Explained and Patient Verbalized Understanding Vital Signs Blood Pressure: 124/62 Pulse: 100 Temperature: 98.0 F Urine Results Urine Protein: Negative Urine Ketones: Negative Urine Glucose: Negative Urine Blood: Negative NST Information Date on Monitor: 04/25/23 Time on Monitor: 14:13 Date off Monitor: 04/25/23 Time off Monitor: 14:33 Total Time on Monitor: 20 NST Interventions: None Contraction Frequency: 0 NST Evaluation Patient States Movement: Present FHR Baseline: 130 Variability: Moderate 6-25 bpm Accelerations: 15x15 Decelerations: None NST Results: Reactive Note Ultrasound Done: N/A. NST Note Note: Category 1, reactive NST NST Reviewed and Verified by: Gail Jay
== END 2023-04-25 14:41 | disposition home or self-care (01) ==
LOC: BCD 08:14 → OBS 14:08
PROVIDERS: PCP Nurse Practitioner Family; Visit Provider Obstetrics & Gynecology
DX: O99.213 Obesity complicating pregnancy, third trimester (principal); Z3A.39 39 weeks gestation of pregnancy
CPT/HCPCS: 59025

== ENCOUNTER 2023-05-13 09:24 | Emergency (ER) | payer MEDICAID, SELFPAY ==
--- NOTE | 2023-05-13 09:15 | RT.EKG_ITS ---
APPROVED REPORT Exam: Resting ECG Reason for Exam: sob Patient Location: E HR:105 bpm ECG Measurements Heart Rate 105 AXIS DC 156 P 33 QRSd 83 QRS 24 QT 340 T 4 QTc 448 Conclusion Sinus tachycardia...rate> [address] segment or T wave abnormalities to suggest occlusive UT
[2023-05-13 09:28] VITALS: BP 142/84; PULSE 116; RESP 24; TEMP 37.1; O2SAT 100
--- NOTE | 2023-05-13 09:30 | DI.CT_ITS ---
Exam(s) CT CHEST PE CTA EXAM: CT CHEST PE CTA CLINICAL HISTORY: pleuritic chest pain, tachy, POD#6 s/p . TECHNIQUE: Imaging Protocol: Axial CT angiography was performed with multi-slice acquisition and mu lti-planar reconstructions as well as axial, coronal and sagittal MIP reconstructions. CONTRAST MATERIAL: Intravenous: Omnipaque 350 Contrast volume:100 ml COMPARISON: CT CT RENAL COLIC WO from 12/08/2020 CR,XR XR PORTABLE CHEST AP from 07/22/2021 FINDINGS: Exam is somewhat limited by respiratory motion and body habitus. Pulmonary Arteries: No evidence of filling defect to suggest pulmonary emboli. Tracheobronchial tree: Patent where visualized. Mediastinum and Vesta: No dominant adenopathy or fluid collection. Pulmonary parenchyma: No consolidation or dominant measurable mass. Atelectasis posterior right costo phrenic angle. Pleura: No effusion or pneumothorax. Heart: The heart is not dilated. No coronary artery calcifications are seen. Aorta: Thoracic aorta non-dilated. No aneurysm. No dissection. Upper abdomen: Unremarkable. Bones: Unremarkable for age. Tubes, Catheters, and Lines: None IMPRESSION: No evidence of pulmonary embolism or other acute abnormality.. RADIATION DOSE DELIVERED: Total DLP DATA REPOSITORY: All CT scans at this facility are submitted to the National Radiology Data Registry (NRDR) Dose Index Registry (DIR) with the [employer] (ACR). RADIATION OPTIMIZATION: All CT scans at this facility use at least one of these dose optimization te chniques: automated exposure control; mA and/or kV adjustment per patient size (includes targeted exa ms where dose is matched to clinical indication); or iterative reconstruction.
[2023-05-13 09:36] VITALS: RESP 20
--- NOTE | 2023-05-13 10:27 | ED.GENADUL_ITS ---
Discharge Plan Disposition Patient Disposition: Home Condition: Stable Discharge Details Clinical Impression: Acute shoulder pain, Tachycardia Primary Care Provider: Suri Diaz ED Provider: Kortney Durán Home Meds and New Rx's Prescriptions: No Action aspirin [Adult Aspirin Regimen] 81 mg tablet,delayed release (DR/EC) 162 mg PO DAILY acetaminophen [Tylenol] 325 mg capsule 650 mg PO ONCE PRN folic acid 800 mcg tablet 0.8 mg PO DAILY Hold Instructions: Pt Stopped/Never Started prenat.vits,anneliese,oky-dnil-gmice Tablet 1 tab PO DAILY Hold Instructions: Pt Stopped/Never Started (DME) lancets [OneTouch Delica Plus Lancet] 30 gauge misc See Rx Instructions .ROUTE .MEDSUPPLY Qty: 100 6RF Rx Instructions: Testing QID (DME) blood-glucose meter [FreeStyle Lite Meter] Kit See Rx Instructions .ROUTE .MEDSUPPLY Qty: 1 0RF Rx Instructions: Testing QID (DME) FreeStyle Lite Strips Strip See Rx Instructions .ROUTE .MEDSUPPLY Qty: 100 5RF Rx Instructions: Testing QID triamcinolone acetonide 0.5 % cream 1 applic topical DAILY PRN (Reason: dermatitis) Qty: 15 4RF Patient Comments: not taking Rx Instructions: Apply small amount to fingers daily as needed for dermatitis oxycodone 5 mg capsule 5 mg PO Q4H PRN Rx Instructions: Prescribed at [facility] after elective induction of labor on 05/07/23. Five tablets with zero refills. ferrous sulfate 325 mg (65 mg iron) tablet 325 mg PO Q OTHER DAY docusate sodium 100 mg capsule 100 mg PO BID Hold Instructions: Pt Stopped/Never Started Rx Instructions: Take for 10 days polyethylene glycol 3350 17 gram powder in packet 17 g PO DAILY ibuprofen 800 mg tablet 800 mg PO Q4H Discharge Instructions Instructions: Shoulder Pain (ED) Additional Instructions: Take tylenol and ibuprofen over the counter for pain, follow the directions on the bottle. Call your [facility]LE[facility]OTOMIST and your PCP today to schedule appointments to followup on your visit here. Mention that your hemoglobin is low. Return to the emergency department for new or worsening symptoms, including new/different/worse pain, difficulty breathing, lightheadedness, or if you have any other concerns. Referrals: Suri Diaz NP [Primary Care Provider] - Medical Decision Making 27yo F POD#6 s/p term , uncomplicated , delivery c/b PPH (no transfusion required) presenting for acute shortness of breath and chest/back/shoulder pain. Yesterday evening began to have left sided sharp pinching chest pain radiating up into her shoulder and back with associated shortness of breath. Has also noted LE edema R > L. Tachycardia on arrival and mildly tachypneic, vital signs otherwise reassuring, no hypoxia. History and symptoms concerning for pulmonary embolism; will get CTA. Difficulty obtaining IV access; multiple attempts, eventually had 20g successfully placed in right AC. EKG sinus tachycardia, appropriate intervals, no indication of occlusive NE. Labs reviewed as below, CBC with anemia to 9.4 , CMP reassuring, normal coags, BNP and troponin normal in the setting of >12 hours of constant pain (will not get repeat)l. CTA independently reviewed, no saddle embolus on my view; agree with radiology read below, no PE or other acute findings. US negative for LE DVT bilaterally. On reassessment patient reports pain improved though still present, repeat HR improved now in 90's, requesting discharge home which is reasonable given reassuring workup. Advised symptoamtic treatment and home and close followup with [facility] PHLEBOTOMIST & PCP; patient called both prior to departing the ED. Imaging Data Radiologic Study: Imaging: CT Scan Radiologist's impression: IMPRESSION: No evidence of pulmonary embolism or other acute abnormality.. Radiologic Study #2: Imaging: Ultrasound Radiologist's impression: IMPRESSION: Right: Negative for DVT Left: Negative for DVT Lab Data Lab results reviewed: Yes I reviewed the patient's lab results. Labs: Laboratory Tests Range/Units 05/13/23 05/13/23 05/13/23 11:12 11:12 11:12 WBC (4.4-10.8) 10^3/uL 12.64 H RBC (3.93-5.22) 10^6/uL 3.39 L Hgb (11.2-15.7) g/dL 9.4 L Hct (36.0-46.0) % 29.1 L MCV (80-95) fL 86 MCH (27.0-33.0) pg 27.7 MCHC (32.0-36.0) % 32.3 RDW (11.7-14.6) % 14.0 Plt Count (130-400) 10^3/uL 537 H MPV (8.0-11.0) fL 9.1 Immature Gran % 4.0 Neutrophils % 65.9 Lymphocytes % 19.1 Monocytes % 6.6 Eosinophils % 3.6 Basophils % 0.8 Nucleated RBC % (0.0-0.3) % 0.0 Absolute Neutrophils (1.2-6.7) 10^3/uL 8.33 H Absolute Lymphocytes (1.2-3.4) 10^3/uL 2.41 Absolute Monocytes (0.1-0.8) 10^3/uL 0.83 H Absolute Eosinophils (0.0-0.7) 10^3/uL 0.46 Absolute Basophils (0.0-0.2) 10^3/uL 0.10 PT (9.1-11.1) sec 9.4 INR (0.9-1.1) 0.9 APTT (23.6-32.8) sec 27.6 Sodium (136-145) mmol/L 141 Potassium (3.5-5.1) mmol/L 4.1 Chloride (98-107) mmol/L 109 H Carbon Dioxide (21.0-32.0) mmol/L 23.0 Anion Gap (3-11) mmol/L 9.0 BUN (7-18) mg/dL 12 Creatinine (0.55-1.02) mg/dL 0.8 Est GFR (CKD-EPI 2020) (mL/min/1.73m2) 102.86 Glucose (74-106) mg/dL 95 Calcium (8.5-10.1) mg/dL 8.7 Magnesium (1.8-2.4) mg/dL 1.7 L Total Bilirubin (0.2-1.0) mg/dL 0.2 AST (15-37) U/L 18 ALT (14-59) U/L 16 Alkaline Phosphatase (46-116) U/L 108 Troponin I Cancelled < 50 NT-Pro-B Natriuret Pep Cancelled 277 Total Protein (6.4-8.2) g/dL 6.4 Albumin (3.4-5.0) g/dL 2.1 L HPI General Mode of arrival: ambulatory . Date/Time Provider Initiated Documentation: 05/13/23 09:37 . Limitations to Documentation: no limitations . Information obtained by: patient . HPI Narrative: 27yo F POD#6 s/p term , uncomplicated , presenting for acute shortness of breath and chest/back/shoulder pain. Delivery complicated by hemmoraghe; did not require transfusion. Yesterday evening began to have left sided sharp pinching chest pain radiating up into her shoulder and back with associated shortness of breath. No lightheadedness or syncope. Both legs have been more swollen over the past week, right leg moreso than left. Minimal lochia, just spotting currently. She is otherwise in her usual state of health with no fevers, chills, rash, nasuase, vomiting, abdominal pain, dysuria, or other concerns. Related Data Home Medications Medication Instructions Recorded Confirmed triamcinolone acetonide 0.5 % 1 applic topical DAILY PRN 04/16/22 05/13/23 topical cream dermatitis #15 grams acetaminophen 325 mg capsule 650 mg PO ONCE PRN 09/17/22 05/13/23 (Tylenol) folic acid 800 mcg tablet 0.8 mg PO DAILY 09/17/22 05/13/23 prenat.vits,anneliese,evy-peej-rvufi 1 tab PO DAILY 09/17/22 05/13/23 aspirin 81 mg tablet,delayed 162 mg PO DAILY 09/23/22 05/13/23 release (Adult Aspirin Regimen) blood sugar diagnostic (FreeStyle #100 ea 11/25/22 04/25/23 Lite Strips) blood-glucose meter (FreeStyle #1 ea 11/25/22 04/25/23 Lite Meter kit) lancets 30 gauge (OneTouch Delica #100 ea 11/25/22 04/25/23 Plus Lancet) docusate sodium 100 mg capsule 100 mg PO BID 05/12/23 05/13/23 ferrous sulfate 325 mg (65 mg 325 mg PO Q OTHER DAY 05/12/23 05/13/23 iron) tablet ibuprofen 800 mg tablet 800 mg PO Q4H 05/12/23 05/13/23 oxycodone 5 mg capsule 5 mg PO Q4H PRN 05/12/23 05/13/23 polyethylene glycol 3350 17 gram 17 g PO DAILY 05/12/23 05/13/23 oral powder packet Previous Rx's Medication Instructions Recorded triamcinolone acetonide 0.5 % 1 applic topical DAILY PRN 04/16/22 topical cream dermatitis #15 grams blood sugar diagnostic (FreeStyle #100 ea 11/25/22 Lite Strips) blood-glucose meter (FreeStyle #1 ea 11/25/22 Lite Meter kit) lancets 30 gauge (OneTouch Delica #100 ea 11/25/22 Plus Lancet) Allergies Allergy/AdvReac Type Severity Reaction Status Date / Time sulfamethoxazole AdvReac Intermediate Nausea Verified 05/13/23 10:54 [From Bactrim] trimethoprim [From Bactrim] AdvReac Intermediate Nausea Verified 05/13/23 10:54 General Stated Complaint: SOB TIAAR: 2 Review of Systems Narrative: see HPI PFSH All Active Problems (Updated 05/13/23 @ 13:30 by Kortney Durán MD) Tachycardia (Acute) Acute shoulder pain (Acute) Encounter for supervision of normal , unspecified, second trimester (Acute) (Acute) Hyperlipidemia (Chronic) PCOS (polycystic ovarian syndrome) (Chronic) Use metformin for period of time. We will skip menses for 2 months Menses, irregular (Chronic) ADHD (attention deficit hyperactivity disorder) (Chronic) Thrombocytosis (Chronic) Migraine headache without aura (Chronic) Followed by [facility], Botox q12wks Obesity (Chronic) BMI 52 Atopic dermatitis (Chronic) Medical History (Updated 05/13/23 @ 13:30 by Kortney Durán MD) Traumatic brain injury age 14, soccer injury Heart defect, congenital History of kidney stones Migraine headache with aura GERD (gastroesophageal reflux disease) Concussion Multiple concussions in childhood Surgical History (Updated 05/12/23 @ 10:08 by Amee Talamantse LPN) History of primary section [facility]-05/07/23 S/P appendectomy H/O valvuloplasty (~1995) Cardiac valvuloplasty as a baby History of removal of ureteral stent (12/02/14) Right S/P cystoscopy with ureteral stent placement (11/18/14) Right Family History (Updated 11/25/22 @ 14:54 by Monika Sun CNM) Mother PCOS (polycystic ovarian syndrome) Hyperlipidemia Breast cancer Type 2 diabetes mellitus Brain cancer Father Depression Hyperlipidemia Prostate cancer Hypertension Brother Chronic headaches Maternal Grandfather Diabetes Hyperlipidemia Cancer Maternal Grandmother , at 63 Heart disease Type 2 diabetes mellitus Liver cancer Paternal Grandfather Type 2 diabetes mellitus Hyperlipidemia Paternal Grandmother No problems noted. Social History Smoking/Tobacco Use Status: Never Smoking risk assessment performed?: Yes Alcohol Intake: never Drug use: Never Substance use type: does not use Caregiver/Support person: No Household members: family, children and other Details: D- Aaalondra. BF Manuelito. 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 Pets and animals: Yes Pets and animals: dog(s) Sexually active: Yes Do you think of yourself as: straight/heterosexual Current gender identity: female What is your relationship status?: refused to answer How often do you talk on the phone with friends or family?: three or more times per week How often do you get together with friends or relatives?: once per week How often do you attend advent or adventism services?: decline to answer Do you belong to any clubs or organized social groups?: no Panel score (0-1 are the most socially isolated patients): 1 What type of physical activity do you participate in: yoga Duration: < 15 minutes/day Frequency: 3-4 times per week Claudia/Holiness: None Special claudia needs: No Seatbelt use: always Helmet use: No Drive intox or ride w/intox driver examiner: No Do you feel safe at home: Yes Do you feel safe in your relationship?: Yes Female Reproductive History Menstrual control method: pills History History 3 Para 1 Hx # Term Pregnancies Multiple births Hx # Pregnancies Ectopic pregnancies AB induced Hx Number of Living Children 1 AB spontaneous 2 Exam Narrative Exam Narrative: General: Alert, anxious appearing, obese Head: Normocephalic, atraumatic Neck: Trachea midline, Neck supple. ENT: MMM. No oropharygeal lesions or exudate. Cardiac: Tachycardiac, regular, no murmurs appreciated Resp: Mildly tachypneic, no retractions, lungs CTAB. Abd: Soft, non-distended, nontender LTCS surgical incision healing well. MSK: TTP and muscle spasm below left scapula Extremities: No deformities. 1+ pitting edema bilateral lower extremities. Neurologic: GCS 15. Moves all extremities freely against gravity Course Vital Signs Vital signs: Vital Signs Temperature 37.1 C 05/13/23 09:28 Pulse 116 H 05/13/23 09:28 Respiratory Rate 24 05/13/23 09:28 Blood Pressure 142/84 H 05/13/23 09:28 Pulse Oximetry 100 05/13/23 09:28 Temperature 37.1 C 05/13/23 09:28 Temperature Source Temporal Artery Scan 05/13/23 09:28 Pulse 116 H 05/13/23 09:28 Respiratory Rate 20 05/13/23 09:36 Respiratory Effort Non-Labored, Short of Breath 05/13/23 09:36 Respiratory Depth Normal 05/13/23 09:36 Respiratory Pattern Normal 05/13/23 09:36 Blood Pressure 142/84 H 05/13/23 09:28 Blood Pressure Position Sitting 05/13/23 09:28 Pulse Oximetry 100 05/13/23 09:28 Oxygen Delivery Method Room Air 05/13/23 09:28 Oxygen Flow Rate 0 05/13/23 09:28 Pain Level 5 05/13/23 09:28
[2023-05-13 11:24] VITALS: BP 142/84; PULSE 116; RESP 20; TEMP 37.1; O2SAT 95
[2023-05-13 11:24] LABS: Absolute Eosinophil Count 0.46 10^3/uL (0.0-0.7); Absolute Lymphocyte Count 2.41 10^3/uL (1.2-3.4); Absolute Monocyte Count 0.83 10^3/uL (0.1-0.8); Absolute Neutrophil Count 8.33 10^3/uL (1.2-6.7); Basophils % 0.8; Eosinophils % 3.6; HCT 29.1 % (36.0-46.0); HGB 9.4 g/dL (11.2-15.7); Lymphocytes % 19.1; MCH 27.7 pg (27.0-33.0); MCHC 32.3 % (32.0-36.0); MCV 86 fL (80-95); MPV 9.1 fL (8.0-11.0); Monocytes % 6.6; Neutrophils % 65.9; Platelet Count 537 10^3/uL (130-400); RBC 3.39 10^6/uL (3.93-5.22); RDW-SD 43.6 fL; WBC 12.64 10^3/uL (4.4-10.8)
[2023-05-13 11:36] LABS: INR 0.9 (0.9-1.1); PTT Activated 27.6 sec (23.6-32.8); Prothrombin Time 9.4 sec (9.1-11.1)
[2023-05-13 11:45] LABS: ALT 16 U/L (14-59); AST 18 U/L (15-37); Albumin 2.1 g/dL (3.4-5.0); Alkaline Phosphatase 108 U/L (46-116); BUN 12 mg/dL (7-18); Bilirubin, Total 0.2 mg/dL (0.2-1.0); CREATININE 0.8 mg/dL (0.55-1.02); Calcium 8.7 mg/dL (8.5-10.1); Chloride 109 mmol/L (98-107); Estimated GFR 102.86 (mL/min/1.73m2); Glucose 95 mg/dL (74-106); Magnesium 1.7 mg/dL (1.8-2.4); NT-proBNP 277 pg/mL (<300); Potassium 4.1 mmol/L (3.5-5.1); Sodium 141 mmol/L (136-145); Total Protein 6.4 g/dL (6.4-8.2); Troponin I < 50 ng/L (<or=60)
[2023-05-13] MEDS: Normal Saline - Diluent 50 ML VIAL IJ (11:47)
[2023-05-13] MEDS: Omnipaque 350 MG/ML 100 ML BTL IJ (11:48)
--- NOTE | 2023-05-13 12:00 | DI.US_ITS ---
Exam(s) US EXTREMITY VENOUS BI EXAM: US EXTREMITY VENOUS BI CLINICAL HISTORY: new edema bilateral LE, R > L. TECHNIQUE: Bilateral lower extremity venous ultrasound performed using grayscale, color-flow, and sp ectral Doppler analysis. COMPARISON: No exams were available for comparison FINDINGS: The bilateral common femoral, femoral and popliteal veins demonstrate normal compressibility, augment ation, and color Doppler. The posterior tibial veins are patent. IMPRESSION: Right: Negative for DVT Left: Negative for DVT DATA REPOSITORY:
[2023-05-13 12:50] LABS: COVID-19 PCR Negative (Negative); Influenza A PCR Negative (Negative); Influenza B PCR Negative (Negative); RSV PCR Negative (Negative)
[2023-05-13 12:56] LABS: Source Nasopharynx
[2023-05-13 13:27] VITALS: BP 138/74; PULSE 94; TEMP 36.6; O2SAT 99
== END 2023-05-13 13:42 | disposition home or self-care (01) ==
PROVIDERS: Emergency Provider Student in an Organized Health Care Education/Training Program; PCP Nurse Practitioner Family
DX: R00.0 Tachycardia, unspecified (principal); M25.512 Pain in left shoulder
CPT/HCPCS: 71275; 80053; 87637; 93005; 96374; 99285; 83735; 83880; 84484; 85025; 85610; 85730; 93010; 93970; 99284; J3490

== ENCOUNTER → 2024-02-12 00:15 | Outpatient (CLI) | payer MEDICAID, SELFPAY ==
--- NOTE | 2024-02-12 07:11 | DI.US_ITS ---
Exam(s) US PELVIS TRANSVAGINAL EXAM: US PELVIS TRANSVAGINAL CLINICAL HISTORY: LOW ABD PAIN,? OVARIAN CYST,POLYCYSTIC OVARIAN SYNDROME. TECHNIQUE: Transabdominal and transvaginal pelvic ultrasound was performed using standard protocol. COMPARISON: US US OB NELL WEIGHT from 03/12/2023 FINDINGS: UTERUS: Position: Anteverted. Size: 9.2 long by 3.8 AP by 4.8 transverse cm Endometrium: 0.9 cm. Normal for patient's menstrual status. Myometrium: Unremarkable. Cervix: Nabothian cysts are present. OVARIES: The ovaries are difficult to visualize. There do appear to be a few small follicles on each ovary. Right: 2.8 x 1.5 x 1.8 cm Cyst or mass: No suspicious cystic or solid masses. Left: 3 x 2.7 x 2.3 cm Cyst or mass: No suspicious cystic or solid masses. CUL-DE-SAC: Free fluid: None. Other: None. IMPRESSION: 1. Normal-appearing uterus with endometrial stripe within normal limits. 2. Within the limits of the examination, the ovaries appear unremarkable. DATA REPOSITORY:
== END ==
PROVIDERS: PCP Nurse Practitioner Family; Visit Provider Nurse Practitioner Family
DX: R10.30 Lower abdominal pain, unspecified (principal); E28.2 Polycystic ovarian syndrome
CPT/HCPCS: 76830; 76856

== ENCOUNTER 2024-04-12 02:33 | Outpatient (CLI) | payer MEDICAID, SELFPAY ==
--- NOTE | 2024-04-12 06:45 | DI.CT_ITS ---
Exam(s) CT ABDOMEN PELVIS W EXAM: CT ABDOMEN PELVIS W CLINICAL HISTORY: chronic abdominal pain, R10.9, G89.29 chronic pain TECHNIQUE: Imaging Protocol: Axial computed tomography images with coronal and sagittal reformatted images were created and reviewed. CONTRAST MATERIAL: Intravenous: Omnipaque 350 Contrast volume:100 mL Oral: Yes COMPARISON: CT CT RENAL COLIC WO from 12/08/[address] CHEST PE CTA from 05/13/2023 FINDINGS: ABDOMEN: Lung Bases: Normal where visualized. Liver: There is decreased attenuation of the liver suggesting fatty infiltration. The liver measures 21 cm long. No measurable mass. Portal, Superior Mesenteric, and Splenic Veins: Unremarkable. Gallbladder and Biliary Tract: No radiodense calculus or dilation. Pancreas: Normal density, no abnormal calcifications or inflammatory process. Spleen: Normal. Adrenals: No masses seen. Kidneys: Normal size, contour and axis. No radiodense stones or obstructive uropathy. No masses seen. Abdominal Aorta: Abdominal portion non-dilated. Bowel: No obstruction or bowel wall thickening. Status post appendectomy. Peritoneal Cavity: No ascites, collection or mesenteric inflammatory response. No free air. Lymph Nodes: Within normal limits. Bones: Within normal limits for the patient's age. Soft Tissues: Unremarkable. PELVIS: Bladder: Symmetric distention, no gross wall thickening. Reproductive Organs: Unremarkable as visualized. Lymph Nodes: Within normal limits. Bones: Within normal limits for the patient's age. IMPRESSION: 1. No acute abdominal or pelvic process. 2. Hepatomegaly and hepatic steatosis. RADIATION DOSE DELIVERED: 931.15mGy.cm Total DLP DATA REPOSITORY: All CT scans at this facility are submitted to the National Radiology Data Registry (NRDR) Dose Index Registry (DIR) with the [employer] ([employer]). RADIATION OPTIMIZATION: All CT scans at this facility use at least one of these dose optimization te chniques: automated exposure control; mA and/or kV adjustment per patient size (includes targeted exa ms where dose is matched to clinical indication); or iterative reconstruction.
[2024-04-12] MEDS: Barium Sulfate 2% W/V-Berry Smoothie 450 ML BTL PO ×2 (08:40→08:42)
[2024-04-12] MEDS: Normal Saline - Diluent 50 ML VIAL IJ (10:53)
[2024-04-12] MEDS: Omnipaque 350 MG/ML 500 ML BTL-Imaging package IJ (10:55)
== END 2024-04-12 02:53 ==
LOC: DI 02:33
PROVIDERS: PCP Nurse Practitioner Family; Visit Provider Nurse Practitioner Family
DX: K76.0 Fatty (change of) liver, not elsewhere classified (principal)
CPT/HCPCS: 74177

== ENCOUNTER 2025-03-24 09:04 | Outpatient (CLI) | payer MEDICAID, SELFPAY ==
[2025-03-24 08:22] LABS: Abs Immature Grans 0.03 10^3/uL (0.0-0.06); HCT 44.8 % (36.0-46.0); HGB 14.7 g/dL (11.2-15.7); Immature Grans % 0.3 %; MCH 27.9 pg (27.0-33.0); MCHC 32.8 % (32.0-36.0); MCV 85 fL (80-95); MPV 9.6 fL (8.0-11.0); Platelet Count 345 10^3/uL (130-400); RBC 5.27 10^6/uL (3.93-5.22); RDW 12.6 % (11.7-14.6); RDW-SD 38.4 fL; WBC 9.09 10^3/uL (4.4-10.8)
[2025-03-24 08:50] LABS: Hemoglobin A1C 5.3 % (<5.7)
[2025-03-24 09:01] LABS: ALT 43 U/L (14-59); AST 26 U/L (15-37); Albumin 3.7 g/dL (3.4-5.0); Alkaline Phosphatase 96 U/L (46-116); Anion Gap 6.6 mmol/L (3-11); BUN 15 mg/dL (7-18); Bilirubin, Total 1.2 mg/dL (0.2-1.0); CO2 27.4 mmol/L (21.0-32.0); Calcium 9.1 mg/dL (8.5-10.1); Chloride 105 mmol/L (98-107); Estimated GFR 101.59 (mL/min/1.73m2); Glucose 105 mg/dL (74-106); Potassium 4.0 mmol/L (3.5-5.1); Sodium 139 mmol/L (136-145); TSH (W/Ref FT4) 1.45 uIU/mL (0.36-3.74); Total Protein 7.8 g/dL (6.4-8.2)
[2025-03-24 09:34] LABS: Ferritin 109 ng/mL (8-252)
== END 2025-03-24 09:05 | disposition home or self-care (01) ==
LOC: LBO 09:04
PROVIDERS: PCP Nurse Practitioner Family; Visit Provider Nurse Practitioner Family
DX: E28.2 Polycystic ovarian syndrome (principal)
CPT/HCPCS: 36415; 80053; 82728; 83036; 84443; 85025